=== PATIENT | male | born 1950 | race African-American/Black ===

== ENCOUNTER 2019-11-11 17:51 | Inpatient (IN) | payer MEDICARE, OTHER ==
[~2019-11-11] VITALS: Ht 180.3 cm; Wt 85.3 kg
[~2019-11-11 17:51] MED LIST: AMLO10TA4 PO; DILANTIN; LOSA100T3 PO; PHEN100C4 PO; TRAM50TA3 PO; [UNRECOGNIZED DRUG - REMARK]
[2019-11-11 19:38] LABS: BASOPHILS % 0.8 % (0.0-2.0); EOSINOPHILS % 2.8 % (0.0-5.0); HEMATOCRIT. 42.9 % (42.0-52.0); HEMOGLOBIN. 14.9 g/dL (14.0-18.0); LYMPHOCYTES % 34.2 % (20.0-50.0); MEAN PLATELET VOLUME 8.2 fl (7.4-10.4); MONOCYTES % 9.4 % (2.0-8.0); NEUTROPHILS % 52.8 % (40.0-76.0); PLATELET 184 x1000/uL (130-400); RED BLOOD CELL COUNT 4.99 mill/uL (4.7-6.1); RED CELL DISTRIBUTION WIDTH 14.8 % (11.6-14.6)
[2019-11-11 19:44] LABS: CHLORIDE 112 mEq/L (98-107)
[2019-11-11 19:49] LABS: ETHANOL BLOOD < 10 mg/dL
[2019-11-11] MEDS ORDERED: ACETAMINOPHEN 325MG TABLET PO PRN ×2 (23:30)
[2019-11-11] MEDS ORDERED: ACETAMINOPHEN 650MG/20.3ML UDC GT PRN ×2 (23:30)
[2019-11-11] MEDS ORDERED: DIPHENHYDRAMINE 50MG/ML VIAL IV PRN (23:30)
[2019-11-11] MEDS ORDERED: DOCUSATE SODIUM 100MG CAPSULE PO PRN (23:30)
[2019-11-11] MEDS ORDERED: MAGNESIUM/ALUMINUM HYDROXIDE/SIMETHICONE 30ML UDC PO PRN (23:30)
[2019-11-11] MEDS ORDERED: ONDANSETRON HCL 4MG/2ML INJ IV PRN (23:30)
[2019-11-11] MEDS ORDERED: GUAIFENESIN 200MG/10ML SUGAR FREE UDC PO PRN (23:30)
[2019-11-11] MEDS ORDERED: ACETAMINOPHEN 650MG SUPP PR PRN ×2 (23:30)
[2019-11-11] MEDS ORDERED: NA PHOS,M-B/NA PHOS,DI-BA ENEMA 118ML PR PRN (23:30)
[2019-11-11 23:50] LABS: CLARITY URINE CLEAR (CLEAR); COLOR URINE YELLOW (YELLOW); KETONES URINE NEGATIVE (NEGATIVE); LEUKOCYTE ESTERASE URINE NEGATIVE (NEGATIVE); NITRITE URINE NEGATIVE (NEGATIVE); OCCULT BLOOD URINE NEGATIVE (NEGATIVE); PROTEIN URINE NEGATIVE (NEGATIVE); SPECIFIC GRAVITY URINE 1.011 (1.005-1.030)
[2019-11-12] VITALS (13 sets, daily range): BP systolic 105–166; BP diastolic 62–126
[2019-11-12 00:28] LABS: *AMPHETAMINES SCREEN URINE NEGATIVE (NEGATIVE); *BARBITURATES SCREEN URINE NEGATIVE (NEGATIVE)
[2019-11-12 00:29] LABS: *BENZODIAZEPINES SCREEN URINE NEGATIVE (NEGATIVE); *COCAINE SCREEN URINE NEGATIVE (NEGATIVE); CANNABINOID URINE SCREEN NEGATIVE (NEGATIVE); METHADONE URINE SCREEN NEGATIVE (NEGATIVE); OPIATES URINE SCREEN NEGATIVE (NEGATIVE); PHENCYCLIDINE URINE SCREEN NEGATIVE (NEGATIVE)
[2019-11-12] MEDS ORDERED: METOPROLOL TARTRATE 5MG/5ML VIAL IV NR (04:45)
[2019-11-12 06:37] LABS: BASOPHILS % 0.6 % (0.0-2.0); EOSINOPHILS % 2.9 % (0.0-5.0); HEMATOCRIT. 44.6 % (42.0-52.0); HEMOGLOBIN. 15.7 g/dL (14.0-18.0); MEAN CORPUSCULAR HEMOGLOBIN 30.2 pg (28.0-32.0); MEAN PLATELET VOLUME 8.4 fl (7.4-10.4); MONOCYTES % 9.6 % (2.0-8.0); NEUTROPHILS % 47.9 % (40.0-76.0); PLATELET 181 x1000/uL (130-400); RED BLOOD CELL COUNT 5.19 mill/uL (4.7-6.1); RED CELL DISTRIBUTION WIDTH 14.7 % (11.6-14.6)
[2019-11-12] MEDS ORDERED: METOPROLOL TARTRATE 5MG/5ML VIAL IV PRN (06:45)
[2019-11-12 06:58] LABS: CHLORIDE 110 mEq/L (98-107)
[2019-11-12 07:05] LABS: LDL CHOLESTEROL 97 mg/dL (5-100)
[2019-11-12 07:06] LABS: HDL CHOLESTEROL 55 mg/dL (40-59)
[2019-11-12] MEDS: ASPIRIN 81MG EC TABLET PO SCH (08:59)
[2019-11-12] MEDS ORDERED: ENOXAPARIN 40MG/0.4ML SYR SUBCUT SCH (09:00)
[2019-11-12] MEDS: APIXABAN 5 MG TABLET PO SCH ×2 (13:25→17:04)
[2019-11-12] MEDS: ATORVASTATIN CALCIUM 40MG TABLET PO SCH (20:56)
[2019-11-12] MEDS: METOPROLOL TARTRATE 25MG TABLET PO SCH (20:56)
[2019-11-12] MEDS ORDERED: ATORVASTATIN CALCIUM 10MG TABLET PO SCH (21:00)
[2019-11-12] MEDS ORDERED: METOPROLOL TARTRATE 25MG TABLET PO SCH (21:00)
[2019-11-12] MEDS ORDERED: MAGNESIUM 2 G PREMIX 50 ML IV NR (21:00)
[2019-11-13] VITALS (11 sets, daily range): BP systolic 106–161; BP diastolic 66–102
[2019-11-13 08:14] LABS: VITAMIN B12 SERUM 627 pg/mL (211-911)
[2019-11-13] MEDS: APIXABAN 5 MG TABLET PO SCH ×2 (09:43→17:23)
[2019-11-13] MEDS: ASPIRIN 81MG EC TABLET PO SCH (09:43)
[2019-11-13] MEDS: METOPROLOL TARTRATE 25MG TABLET PO SCH ×2 (09:44→21:53)
[2019-11-13 12:41] LABS: EOSINOPHILS % 2.4 % (0.0-5.0); HEMATOCRIT. 42.8 % (42.0-52.0); HEMOGLOBIN. 14.5 g/dL (14.0-18.0); LYMPHOCYTES % 32.2 % (20.0-50.0); MEAN CORPUSCULAR HEMOGLOBIN 29.5 pg (28.0-32.0); MEAN CORPUSCULAR VOLUME 86.9 fL (80.0-94.0); MONOCYTES % 10.6 % (2.0-8.0); NEUTROPHILS % 53.8 % (40.0-76.0); PLATELET 185 x1000/uL (130-400); RED BLOOD CELL COUNT 4.93 mill/uL (4.7-6.1); RED CELL DISTRIBUTION WIDTH 14.8 % (11.6-14.6)
[2019-11-13 12:49] LABS: CHLORIDE 111 mEq/L (98-107)
[2019-11-13] MEDS: PHENYTOIN SODIUM EXTENDED 100MG CAPSULE PO SCH ×2 (15:21→21:51)
[2019-11-13] MEDS: ATORVASTATIN CALCIUM 40MG TABLET PO SCH (21:51)
[2019-11-14] VITALS (12 sets, daily range): BP systolic 112–142; BP diastolic 42–109
[2019-11-14] MEDS: PHENYTOIN SODIUM EXTENDED 100MG CAPSULE PO SCH ×2 (06:42→17:16)
[2019-11-14] MEDS: ASPIRIN 81MG EC TABLET PO SCH (08:50)
[2019-11-14] MEDS: APIXABAN 5 MG TABLET PO SCH ×2 (08:50→17:16)
[2019-11-14] MEDS: METOPROLOL TARTRATE 25MG TABLET PO SCH (08:53)
[2019-11-14] MEDS ORDERED: ASPI-1158 PO (09:46)
[2019-11-14] MEDS ORDERED: PHEN100C4 PO (09:46)
[2019-11-14] MEDS ORDERED: LIP40 PO (09:46)
[2019-11-14] MEDS ORDERED: APIX5TAB PO (09:46)
[2019-11-14] MEDS ORDERED: METO25TA6 PO (09:46)
[2019-11-14] MEDS ORDERED: PHENYTOIN SODIUM EXTENDED 100MG CAPSULE PO NR (16:00)
== END 2019-11-14 20:34 | disposition home health service (06) | DRG 45 ==
LOC: ER 17:51 → 3WST 20:01 → EDBEDREQ 20:02 → EDBEDREQTM 20:02 → ENRESERV 23:54 → 3WST 11-12 05:18
PROVIDERS: ADMIT Family Medicine; ATTEND Family Medicine
DX: I63.9 Cerebral infarction, unspecified (principal); G93.40 Encephalopathy, unspecified; I27.20 Pulmonary hypertension, unspecified; E87.8 Other disorders of electrolyte and fluid balance, not elsewhere classified; I48.91 Unspecified atrial fibrillation; I69.351 Hemiplegia and hemiparesis following cerebral infarction affecting right dominant side; E78.5 Hyperlipidemia, unspecified; G40.909 Epilepsy, unspecified, not intractable, without status epilepticus; F17.200 Nicotine dependence, unspecified, uncomplicated; R53.1 Weakness; I12.9 Hypertensive chronic kidney disease with stage 1 through stage 4 chronic kidney disease, or unspecified chronic kidney disease; J44.9 Chronic obstructive pulmonary disease, unspecified; N18.9 Chronic kidney disease, unspecified; Z85.038 Personal history of other malignant neoplasm of large intestine
CPT/HCPCS: 36415; 71045; 80053; 80061; 80185; 80305; 80320; 81003; 82140; 82607; 82962; 83735; 83880; 84443; 84484; 85025; 92610; 93005; 93306; 93880; 97112; 97162; 97166; 97530; 99285; J1650; J3475; J3490; G0480

== ENCOUNTER 2020-01-21 12:18 | Inpatient (IN) | payer MEDICARE, MEDICAID ==
[~2020-01-21] VITALS: Ht 182.9 cm; Wt 90.7 kg
[2020-01-21] MEDS: DEXT 5%/0.45% NACL 1000ML 1,000 ML IV SCH (07:30)
[~2020-01-21 12:18] MED LIST changes: +APIX5TAB PO; +ASPI-1158 PO; +LIP40 PO; +METO25TA6 PO
[2020-01-21] MEDS ORDERED: DILTIAZEM HCL 5MG/ML 5ML VIAL IV ONE (12:42)
[2020-01-21] MEDS ORDERED: KETAMINE HCL 50 MG/ML 10ML ONE (12:49)
[2020-01-21] MEDS ORDERED: ADENOSINE 3 MG/ML 2ML VIAL IV ONE (12:56)
[2020-01-21] MEDS ORDERED: SODIUM CHLORIDE 0.9% 1000ML BAG (SEPSIS BOLUS) IV ONE (13:15)
[2020-01-21] MEDS ORDERED: LEVOFLOXACIN 750MG PREMIX 150 ML IV ONE (13:15)
[2020-01-21] MEDS ORDERED: DEXAMETHASONE 4MG/ML 1ML VIAL IV SCH (13:15)
[2020-01-21] MEDS ORDERED: CEFTRIAXONE 1 G PREMIX 50 ML IV ONE (13:15)
[2020-01-21] MEDS ORDERED: FENTANYL CITRATE/PF 1,000 MCG in SODIUM CHLORIDE 0.9% 80 ML IV PRN ×2 (13:30→14:00)
[2020-01-21 14:21] LABS: BG BASE EXCESS -10.7 mmol/L (-2.0-2.0); BG CARBOXYHEMOGLOBIN 0.2 % (0.5-1.5); BG DEOXYHEMOGLOBIN 1.2 % (0.0-5.0); BG HCO3 ACT 13.4 mmol/L (22.0-26.0); BG METHEMOGLOBIN 0.2 % (0.0-1.5); BG OXYGEN SATURATION 98.8 % (92.0-98.5); BG OXYHEMOGLOBIN 98.4 % (94.0-97.0); BG PCO2 24.4 mmHg (35.0-45.0); BG PH 7.356 (7.350-7.450); BG PO2 309.5 mmHg (75.0-100.0); BG SAMPLE SITE RIGHT RADIAL; BG TIDAL VOLUME(mL) 450 mL; BG TOTAL HEMOGLOBIN 10.2 g/dL (12.0-18.0); BG VENT MODE VENT - A/C; BG VENT RATE 14 set
[2020-01-21 16:35] LABS: CLARITY URINE TURBID (CLEAR); KETONES URINE 1+ (NEGATIVE); LEUKOCYTE ESTERASE URINE 3+ (NEGATIVE); NITRITE URINE NEGATIVE (NEGATIVE); OCCULT BLOOD URINE 3+ (NEGATIVE); PROTEIN URINE 2+ (NEGATIVE); SPECIFIC GRAVITY URINE 1.015 (1.005-1.030)
[2020-01-21 16:49] LABS: COLOR URINE ORANGE (YELLOW)
[2020-01-21 16:49] LABS: CHLORIDE 118 mEq/L (98-107)
[2020-01-21 16:55] LABS: BASOPHILS % 0.1 % (0.0-2.0); EOSINOPHILS % 0.4 % (0.0-5.0); HEMATOCRIT. 25.8 % (42.0-52.0); LYMPHOCYTES % 7.6 % (20.0-50.0); MEAN CORPUSCULAR HEMOGLOBIN 30.1 pg (28.0-32.0); MEAN CORPUSCULAR VOLUME 86.5 fL (80.0-94.0); MEAN PLATELET VOLUME 9.3 fl (7.4-10.4); NEUTROPHILS % 84.9 % (40.0-76.0); PLATELET 216 x1000/uL (130-400); RED BLOOD CELL COUNT 2.99 mill/uL (4.7-6.1)
[2020-01-21] MEDS ORDERED: ENOXAPARIN 60MG/0.6ML SYR SUBCUT ONE (17:00)
[2020-01-21 17:01] LABS: INR 1.2
[2020-01-21] MEDS ORDERED: MAGNESIUM/ALUMINUM HYDROXIDE/SIMETHICONE 30ML UDC PO PRN (17:15)
[2020-01-21] MEDS ORDERED: GUAIFENESIN 200MG/10ML SUGAR FREE UDC PO PRN (17:15)
[2020-01-21] MEDS ORDERED: CLONIDINE 0.1MG TABLET PO PRN (17:15)
[2020-01-21] MEDS ORDERED: AMIODARONE HCL 300 MG in DEXT 5% WATER 100 ML IV NR (17:30)
[2020-01-21] MEDS ORDERED: SODIUM CHLORIDE 0.9% 1000ML BAG (SEPSIS BOLUS) IV NR (17:36)
[2020-01-21 17:47] LABS: TOTAL IRON BINDING CAPACITY 76 ug/dL (250-450)
[2020-01-21] MEDS ORDERED: NOREPINEPHRINE 4MG/250ML PMX 250 ML IV NR (17:47)
[2020-01-21 17:48] LABS: LDL CHOLESTEROL 17 mg/dL (5-100)
[2020-01-21 17:50] LABS: HDL CHOLESTEROL 8 mg/dL (40-59)
[2020-01-21 17:51] LABS: T4 FREE 0.98 ng/dL (0.76-1.46)
[2020-01-21 18:07] LABS: FOLIC ACID (FOLATE) SERUM 14.2 ng/mL (>5.38)
[2020-01-21] MEDS ORDERED: VANCOMYCIN 1 G PREMIX 200 ML IV NR (19:00)
[2020-01-21] MEDS: IPRATROPIUM/ALBUTEROL 0.5-3(2.5)MG/3ML NEB HHN SCH (21:33)
[2020-01-22] MEDS: DEXT 5%/0.45% NACL 1000ML 1,000 ML IV SCH ×3 (00:30→17:38)
[2020-01-22] MEDS: IPRATROPIUM/ALBUTEROL 0.5-3(2.5)MG/3ML NEB HHN SCH ×3 (00:50→10:07)
[2020-01-22 06:04] LABS: CHLORIDE 118 mEq/L (98-107)
[2020-01-22 06:06] LABS: HEMATOCRIT. 29.7 % (42.0-52.0); HEMOGLOBIN. 10.1 g/dL (14.0-18.0); MEAN CORPUSCULAR HEMOGLOBIN 29.3 pg (28.0-32.0); MEAN CORPUSCULAR VOLUME 86.1 fL (80.0-94.0); MEAN PLATELET VOLUME 9.3 fl (7.4-10.4); PLATELET 203 x1000/uL (130-400); RED BLOOD CELL COUNT 3.45 mill/uL (4.7-6.1); RED CELL DISTRIBUTION WIDTH 15.8 % (11.6-14.6)
[2020-01-22 06:11] LABS: PHOSPHORUS 6.8 mg/dL (2.5-4.9)
[2020-01-22] MEDS: PIPERACILLIN/TAZ 3.375G PREMIX 50 ML IV SCH ×3 (07:40→09:27)
[2020-01-22] MEDS: ASCORBIC ACID 500 MG TABLET PO SCH ×2 (07:41→09:00)
[2020-01-22] MEDS: ASPIRIN 325MG EC TABLET PO SCH (09:00)
[2020-01-22] MEDS ORDERED: AMIODARONE HCL 900 MG in DEXT 5% WATER 500 ML IV SCH (09:00)
[2020-01-22] MEDS: ZINC SULFATE 220 MG ( 50 ) CAPSULE PO SCH (09:00)
[2020-01-22] MEDS: PANTOPRAZOLE SODIUM 40 MG/VIAL IV SCH (09:00)
[2020-01-22] MEDS ORDERED: VANCOMYCIN 1 G PREMIX 200 ML IV NR (09:30)
[2020-01-22] MEDS ORDERED: MIDODRINE HCL 5MG TABLET NG SCH (16:45)
[2020-01-22] MEDS ORDERED: DILTIAZEM HCL 125 MG in DEXT 5% WATER 100 ML IV NR (16:45)
[2020-01-22] MEDS ORDERED: HEPARIN 25,000 UNITS PREMIX 500 ML IV SCH (16:45)
[2020-01-22] MEDS ORDERED: ENOXAPARIN 30MG/0.3ML SYR SUBCUT SCH (17:00)
[2020-01-22] MEDS ORDERED: DIGOXIN 500MCG/2ML AMP IV NR (17:15)
[2020-01-22] MEDS ORDERED: PHENYLEPHRINE 10 MG in DEXT 5% WATER 249 ML IV PRN (17:15)
[2020-01-22 18:58] LABS: INR 1.1; PARTIAL THROMBOPLASTIN TIME 33.3 sec (23.4-31.0); PROTHROMBIN TIME 11.8 sec (9.6-11.0)
[2020-01-22 19:11] LABS: PLATELET ESTIMATE NORMAL
[2020-01-22] MEDS ORDERED: HEPARIN BOLUS PRN aPTT <30 IV (19:15)
[2020-01-22] MEDS ORDERED: HEPARIN BOLUS PRN aPTT 30-44 IV (19:15)
[2020-01-22 19:29] LABS: BG BASE EXCESS -11.2 mmol/L (-2.0-2.0); BG CARBOXYHEMOGLOBIN 0.2 % (0.5-1.5); BG DEOXYHEMOGLOBIN 2.6 % (0.0-5.0); BG FRACTION INSPIRED OXYGEN 50; BG HCO3 ACT 14.4 mmol/L (22.0-26.0); BG METHEMOGLOBIN 0.2 % (0.0-1.5); BG OXYGEN SATURATION 97.4 % (92.0-98.5); BG PCO2 31.2 mmHg (35.0-45.0); BG PH 7.282 (7.350-7.450); BG PO2 113.4 mmHg (75.0-100.0); BG SAMPLE SITE RIGHT RADIAL; BG TIDAL VOLUME(mL) 500 mL; BG TOTAL HEMOGLOBIN 10.2 g/dL (12.0-18.0); BG VENT MODE VENT - A/C; BG VENT RATE 14 set
[2020-01-22] MEDS ORDERED: HEPARIN 60 UNITS/KG BOLUS IV SCH (19:30)
[2020-01-22] MEDS: DILTIAZEM HCL 125 MG in DEXT 5% WATER 100 ML IV PRN (20:10)
[2020-01-22] MEDS: IPRATROPIUM BROMIDE (0.02%) 0.5MG/2.5ML NEB HHN SCH (20:30)
[2020-01-22] MEDS: HEPARIN 25,000 UNITS PREMIX 500 ML IV SCH (21:33)
[2020-01-22] MEDS ORDERED: MIDODRINE HCL 5MG TABLET NG NR (22:15)
[2020-01-22] MEDS ORDERED: MIDODRINE HCL 5MG TABLET PO NR (22:15)
[2020-01-23] VITALS (23 sets, daily range): BP systolic 80–121; BP diastolic 56–84
[2020-01-23] MEDS: PIPERACILLIN/TAZOBACTAM 2.25 G in DEXTROSE 5% WATER 50 ML IV SCH ×3 (00:30→20:47)
[2020-01-23] MEDS ORDERED: DIGOXIN 500MCG/2ML AMP IV NR (01:00)
[2020-01-23] MEDS: ASCORBIC ACID 500 MG TABLET PO SCH ×3 (02:30→20:47)
[2020-01-23] MEDS: IPRATROPIUM BROMIDE (0.02%) 0.5MG/2.5ML NEB HHN SCH (04:30)
[2020-01-23] MEDS ORDERED: ALBUMIN HUMAN 25GM/100ML (25%) IV ONE (06:45)
[2020-01-23] MEDS: ASPIRIN 325MG EC TABLET PO SCH (09:00)
[2020-01-23] MEDS: ZINC SULFATE 220 MG ( 50 ) CAPSULE PO SCH (09:00)
[2020-01-23] MEDS ORDERED: MIDODRINE HCL 5MG TABLET NG SCH (09:00)
[2020-01-23] MEDS: PANTOPRAZOLE SODIUM 40 MG/VIAL IV SCH (09:00)
[2020-01-23] MEDS ORDERED: AMIODARONE HCL 200 MG TABLET PO SCH (09:00)
[2020-01-23 09:22] LABS: BG BASE EXCESS -13.1 mmol/L (-2.0-2.0); BG CARBOXYHEMOGLOBIN 0.2 % (0.5-1.5); BG DEOXYHEMOGLOBIN 1.3 % (0.0-5.0); BG HCO3 ACT 14.4 mmol/L (22.0-26.0); BG METHEMOGLOBIN 0.1 % (0.0-1.5); BG OXYGEN SATURATION 98.7 % (92.0-98.5); BG OXYHEMOGLOBIN 98.4 % (94.0-97.0); BG PCO2 39.3 mmHg (35.0-45.0); BG PH 7.182 (7.350-7.450); BG SAMPLE SITE LEFT FEMORAL; BG TIDAL VOLUME(mL) 500 mL; BG TOTAL HEMOGLOBIN 10.7 g/dL (12.0-18.0); BG VENT MODE VENT - A/C; BG VENT RATE 14 set
[2020-01-23] MEDS ORDERED: MIDODRINE HCL 5MG TABLET PO STA (10:27)
[2020-01-23] MEDS ORDERED: VANCOMYCIN 1250MG in DEXTROSE 5% WATER 250ML IV NR (11:00)
[2020-01-23] MEDS ORDERED: LIDOCAINE HCL 1% 20ML VIAL (Pyxis) INJ ONE (11:36)
[2020-01-23] MEDS ORDERED: SODIUM BICARBONATE 4% (2.4MEQ) 5ML VIAL IV ONE (11:36)
[2020-01-23] MEDS ORDERED: SODIUM BICARBONATE 8.4% 1 MEQ/ML 50ML SYR IV NR (12:30)
[2020-01-23] MEDS ORDERED: SODIUM BICARBONATE 8.4% 1 MEQ/ML 50ML SYR IV ONE (12:30)
[2020-01-23 12:41] LABS: HEMATOCRIT. 28.1 % (42.0-52.0); HEMOGLOBIN. 9.3 g/dL (14.0-18.0); MEAN CORPUSCULAR HEMOGLOBIN 28.9 pg (28.0-32.0); MEAN CORPUSCULAR VOLUME 87.4 fL (80.0-94.0); MEAN PLATELET VOLUME 9.2 fl (7.4-10.4); PLATELET 241 x1000/uL (130-400); RED BLOOD CELL COUNT 3.21 mill/uL (4.7-6.1); RED CELL DISTRIBUTION WIDTH 16.5 % (11.6-14.6)
[2020-01-23 12:43] LABS: CHLORIDE 109 mEq/L (98-107)
[2020-01-23 12:51] LABS: PHOSPHORUS 7.7 mg/dL (2.5-4.9)
[2020-01-23 13:02] LABS: NUCLEATED RED BLOOD CELLS 1 /100 WBC; PLATELET ESTIMATE NORMAL
[2020-01-23] MEDS ORDERED: SODIUM POLYSTYRENE SULFONATE 15 G/60 ML BOT PO NR (13:30)
[2020-01-23] MEDS: SODIUM BICARBONATE 100 MEQ in DEXTROSE 5% WATER 1,000 ML IV SCH (13:30)
[2020-01-23] MEDS ORDERED: FUROSEMIDE 100MG/10ML VIAL IVP NR (13:30)
[2020-01-23] MEDS: SODIUM BICARBONATE 8.4% 1 MEQ/ML 50ML SYR IV NR ×2 (13:50→13:52)
[2020-01-23] MEDS: MIDODRINE HCL 5MG TABLET NG SCH ×2 (14:36→21:04)
[2020-01-23] MEDS: FENTANYL CITRATE/PF 1,000 MCG in SODIUM CHLORIDE 0.9% 80 ML IV PRN (18:35)
[2020-01-23] MEDS: PHENYLEPHRINE 40 MG in DEXTROSE 5% WATER 250 ML IV PRN ×2 (18:59→22:59)
[2020-01-23] MEDS: MIDAZOLAM HCL 100 MG in DEXT 5% WATER 80 ML IV PRN (19:00)
[2020-01-24] VITALS (96 sets, daily range): BP systolic 72–120; BP diastolic 42–95
[2020-01-24] MEDS: IPRATROPIUM BROMIDE (0.02%) 0.5MG/2.5ML NEB HHN SCH ×5 (00:49→21:52)
[2020-01-24] MEDS: SODIUM BICARBONATE 100 MEQ in DEXTROSE 5% WATER 1,000 ML IV SCH ×2 (00:59→11:41)
[2020-01-24] MEDS: HEPARIN 25,000 UNITS PREMIX 500 ML IV SCH (01:07)
[2020-01-24] MEDS: PHENYLEPHRINE 80 MG in DEXT 5% WATER 492 ML IV PRN ×2 (04:10→22:06)
[2020-01-24] MEDS: MIDODRINE HCL 5MG TABLET NG SCH ×3 (05:31→22:05)
[2020-01-24 07:44] LABS: HEMATOCRIT. 26.8 % (42.0-52.0); HEMOGLOBIN. 9.1 g/dL (14.0-18.0); MEAN CORPUSCULAR HEMOGLOBIN 28.8 pg (28.0-32.0); MEAN CORPUSCULAR VOLUME 84.9 fL (80.0-94.0); MEAN PLATELET VOLUME 9.2 fl (7.4-10.4); PLATELET 162 x1000/uL (130-400); RED BLOOD CELL COUNT 3.16 mill/uL (4.7-6.1)
[2020-01-24 07:47] LABS: CHLORIDE 98 mEq/L (98-107)
[2020-01-24 07:53] LABS: PHOSPHORUS 6.8 mg/dL (2.5-4.9)
[2020-01-24 10:06] LABS: BG BASE EXCESS -5.7 mmol/L (-2.0-2.0); BG CARBOXYHEMOGLOBIN 0.3 % (0.5-1.5); BG DEOXYHEMOGLOBIN 2.8 % (0.0-5.0); BG FRACTION INSPIRED OXYGEN 40; BG HCO3 ACT 19.7 mmol/L (22.0-26.0); BG METHEMOGLOBIN 0.4 % (0.0-1.5); BG OXYGEN SATURATION 97.2 % (92.0-98.5); BG OXYHEMOGLOBIN 96.5 % (94.0-97.0); BG PCO2 38.1 mmHg (35.0-45.0); BG PH 7.331 (7.350-7.450); BG PO2 99.1 mmHg (75.0-100.0); BG SAMPLE SITE RIGHT RADIAL; BG TIDAL VOLUME(mL) 450 mL; BG TOTAL HEMOGLOBIN 6.1 g/dL (12.0-18.0); BG VENT MODE VENT - A/C; BG VENT RATE 18 set
[2020-01-24] MEDS: PANTOPRAZOLE SODIUM 40 MG/VIAL IV SCH (10:12)
[2020-01-24] MEDS: ASCORBIC ACID 500 MG TABLET PO SCH ×2 (10:12→22:04)
[2020-01-24] MEDS: ASPIRIN 325MG EC TABLET PO SCH (10:13)
[2020-01-24] MEDS: ZINC SULFATE 220 MG ( 50 ) CAPSULE PO SCH (10:13)
[2020-01-24] MEDS: PIPERACILLIN/TAZOBACTAM 2.25 G in DEXTROSE 5% WATER 50 ML IV SCH (11:06)
[2020-01-24 11:16] LABS: PLATELET ESTIMATE NORMAL
[2020-01-24] MEDS: MIDAZOLAM HCL 100 MG in DEXT 5% WATER 80 ML IV PRN (13:53)
[2020-01-24] MEDS ORDERED: ALBUMIN HUMAN 25GM/100ML (25%) IV NR (14:00)
[2020-01-24] MEDS: SODIUM BICARBONATE 150 MEQ in DEXTROSE 5% WATER 1,000 ML IV SCH (14:27)
[2020-01-24] MEDS: ENOXAPARIN 80MG/0.8ML SYR SUBCUT SCH (14:29)
[2020-01-24] MEDS: FENTANYL CITRATE/PF 1,000 MCG in SODIUM CHLORIDE 0.9% 80 ML IV PRN (15:15)
[2020-01-24] MEDS: MEROPENEM 1,000 MG in SODIUM CHLORIDE 0.9% 100 ML IV SCH (22:01)
[2020-01-24] MEDS: METRONIDAZOLE 250MG TABLET PO SCH (22:04)
[2020-01-24] MEDS: SODIUM HYPOCHLORITE (0.25%) 480ML SOLUTION (HALF STRENGTH) TOP SCH (22:05)
[2020-01-24] MEDS: DILTIAZEM HCL 125 MG in DEXT 5% WATER 100 ML IV PRN (23:43)
[2020-01-25] VITALS (99 sets, daily range): BP systolic 67–154; BP diastolic 43–99
[2020-01-25] MEDS: IPRATROPIUM BROMIDE (0.02%) 0.5MG/2.5ML NEB HHN SCH ×5 (01:02→21:03)
[2020-01-25] MEDS: SODIUM BICARBONATE 150 MEQ in DEXTROSE 5% WATER 1,000 ML IV SCH ×3 (01:44→13:34)
[2020-01-25] MEDS: NOREPINEPHRINE 8 MG in DEXT 5% WATER 242 ML IV PRN (02:49)
[2020-01-25] MEDS: FENTANYL CITRATE/PF 1,000 MCG in SODIUM CHLORIDE 0.9% 80 ML IV PRN ×2 (05:45→17:36)
[2020-01-25 05:57] LABS: BASOPHILS % 0.1 % (0.0-2.0); EOSINOPHILS % 0.2 % (0.0-5.0); HEMATOCRIT. 24.1 % (42.0-52.0); HEMOGLOBIN. 8.6 g/dL (14.0-18.0); MEAN CORPUSCULAR HEMOGLOBIN 29.5 pg (28.0-32.0); MEAN CORPUSCULAR VOLUME 83.1 fL (80.0-94.0); MEAN PLATELET VOLUME 8.9 fl (7.4-10.4); MONOCYTES % 2.9 % (2.0-8.0); NEUTROPHILS % 88.8 % (40.0-76.0); PLATELET 130 x1000/uL (130-400); RED CELL DISTRIBUTION WIDTH 15.8 % (11.6-14.6)
[2020-01-25] MEDS: METRONIDAZOLE 250MG TABLET PO SCH ×3 (05:57→21:34)
[2020-01-25] MEDS: MIDODRINE HCL 5MG TABLET NG SCH ×3 (05:57→21:37)
[2020-01-25 06:22] LABS: PHOSPHORUS 4.9 mg/dL (2.5-4.9)
[2020-01-25] MEDS: PHENYLEPHRINE 80 MG in DEXT 5% WATER 492 ML IV PRN ×3 (07:05→22:45)
[2020-01-25] MEDS: PANTOPRAZOLE SODIUM 40 MG/VIAL IV SCH (08:52)
[2020-01-25] MEDS: ACETAMINOPHEN 325MG TABLET PO PRN (08:53)
[2020-01-25] MEDS: ASCORBIC ACID 500 MG TABLET PO SCH ×2 (08:54→21:34)
[2020-01-25] MEDS: ASPIRIN 325MG EC TABLET PO SCH (08:54)
[2020-01-25] MEDS: ZINC SULFATE 220 MG ( 50 ) CAPSULE PO SCH (08:54)
[2020-01-25] MEDS: SODIUM HYPOCHLORITE (0.25%) 480ML SOLUTION (HALF STRENGTH) TOP SCH ×3 (08:54→17:35)
[2020-01-25 10:37] LABS: BG BASE EXCESS -6.6 mmol/L (-2.0-2.0); BG CARBOXYHEMOGLOBIN 0.3 % (0.5-1.5); BG FRACTION INSPIRED OXYGEN 40; BG HCO3 ACT 16.9 mmol/L (22.0-26.0); BG METHEMOGLOBIN 0.1 % (0.0-1.5); BG OXYHEMOGLOBIN 97.6 % (94.0-97.0); BG PCO2 26.8 mmHg (35.0-45.0); BG PH 7.417 (7.350-7.450); BG PO2 121.4 mmHg (75.0-100.0); BG SAMPLE SITE RIGHT RADIAL; BG TIDAL VOLUME(mL) 450 mL; BG TOTAL HEMOGLOBIN 9.1 g/dL (12.0-18.0); BG VENT MODE VENT - A/C; BG VENT RATE 18 set
[2020-01-25] MEDS: CALCITRIOL 1MCG/ML AMP IV SCH (12:10)
[2020-01-25] MEDS ORDERED: VANCOMYCIN 1 G PREMIX 200 ML IV SCH (14:00)
[2020-01-25] MEDS: ENOXAPARIN 80MG/0.8ML SYR SUBCUT SCH (14:10)
[2020-01-25] MEDS: MEROPENEM 1,000 MG in SODIUM CHLORIDE 0.9% 100 ML IV SCH (17:36)
[2020-01-25] MEDS: DILTIAZEM HCL 125 MG in DEXT 5% WATER 100 ML IV PRN (19:19)
[2020-01-26] VITALS (95 sets, daily range): BP systolic 69–133; BP diastolic 40–92
[2020-01-26] MEDS: IPRATROPIUM BROMIDE (0.02%) 0.5MG/2.5ML NEB HHN SCH ×6 (00:41→21:37)
[2020-01-26] MEDS: SODIUM BICARBONATE 150 MEQ in DEXTROSE 5% WATER 1,000 ML IV SCH ×2 (01:15→13:04)
[2020-01-26] MEDS: MIDAZOLAM HCL 100 MG in DEXT 5% WATER 80 ML IV PRN (03:30)
[2020-01-26] MEDS: FENTANYL CITRATE/PF 1,000 MCG in SODIUM CHLORIDE 0.9% 80 ML IV PRN ×3 (03:30→21:57)
[2020-01-26] MEDS: METRONIDAZOLE 250MG TABLET PO SCH ×3 (05:03→21:24)
[2020-01-26] MEDS: MIDODRINE HCL 5MG TABLET NG SCH ×3 (05:03→21:25)
[2020-01-26 06:32] LABS: HEMATOCRIT. 27.4 % (42.0-52.0); HEMOGLOBIN. 9.4 g/dL (14.0-18.0); MEAN CORPUSCULAR HEMOGLOBIN 28.8 pg (28.0-32.0); MEAN CORPUSCULAR VOLUME 83.3 fL (80.0-94.0); MEAN PLATELET VOLUME 9.2 fl (7.4-10.4); PLATELET 126 x1000/uL (130-400); RED BLOOD CELL COUNT 3.28 mill/uL (4.7-6.1); RED CELL DISTRIBUTION WIDTH 15.1 % (11.6-14.6)
[2020-01-26 07:16] LABS: PHOSPHORUS 3.6 mg/dL (2.5-4.9)
[2020-01-26] MEDS: PHENYLEPHRINE 80 MG in DEXT 5% WATER 492 ML IV PRN ×3 (08:33→22:07)
[2020-01-26] MEDS: FOLIC ACID 1MG TABLET NG SCH (08:35)
[2020-01-26] MEDS: ASPIRIN 325MG EC TABLET PO SCH (08:35)
[2020-01-26] MEDS: ZINC SULFATE 220 MG ( 50 ) CAPSULE PO SCH (08:35)
[2020-01-26] MEDS: ASCORBIC ACID 500 MG TABLET PO SCH ×2 (08:35→21:24)
[2020-01-26] MEDS: THIAMINE HCL 100MG TABLET NG SCH ×2 (08:35→17:16)
[2020-01-26] MEDS: CALCITRIOL 1MCG/ML AMP IV SCH (08:35)
[2020-01-26] MEDS: PANTOPRAZOLE SODIUM 40 MG/VIAL IV SCH (08:35)
[2020-01-26] MEDS: SODIUM HYPOCHLORITE (0.25%) 480ML SOLUTION (HALF STRENGTH) TOP SCH ×3 (08:35→17:16)
[2020-01-26 10:17] LABS: BG BASE EXCESS 4.7 mmol/L (-2.0-2.0); BG CARBOXYHEMOGLOBIN 0.2 % (0.5-1.5); BG DEOXYHEMOGLOBIN 3.4 % (0.0-5.0); BG FRACTION INSPIRED OXYGEN 40; BG HCO3 ACT 27.5 mmol/L (22.0-26.0); BG METHEMOGLOBIN 0.2 % (0.0-1.5); BG OXYGEN SATURATION 96.6 % (92.0-98.5); BG OXYHEMOGLOBIN 96.2 % (94.0-97.0); BG PCO2 33.5 mmHg (35.0-45.0); BG PH 7.532 (7.350-7.450); BG SAMPLE SITE RIGHT RADIAL; BG TIDAL VOLUME(mL) 450 mL; BG TOTAL HEMOGLOBIN 8.9 g/dL (12.0-18.0); BG VENT MODE VENT - A/C; BG VENT RATE 18 set
[2020-01-26] MEDS ORDERED: KCL 20MEQ/100ML PREMIX 100 ML IV NR (12:00)
[2020-01-26] MEDS: NOREPINEPHRINE 8 MG in DEXT 5% WATER 242 ML IV PRN ×2 (13:05→22:05)
[2020-01-26] MEDS: ENOXAPARIN 80MG/0.8ML SYR SUBCUT SCH (15:16)
[2020-01-26] MEDS: MEROPENEM 1,000 MG in SODIUM CHLORIDE 0.9% 100 ML IV SCH (17:16)
[2020-01-26] MEDS: DILTIAZEM HCL 125 MG in DEXT 5% WATER 100 ML IV PRN (19:45)
[2020-01-26] MEDS ORDERED: KCL 20MEQ/100ML PREMIX 100 ML IV SCH (20:00)
[2020-01-26] MEDS ORDERED: MAGNESIUM 2 G PREMIX 50 ML IV SCH (20:00)
[2020-01-26] MEDS: DEXT 5%/0.9% NACL KCL 20MEQ/L 1,000 ML IV SCH (20:20)
[2020-01-26 20:39] LABS: ATYPICAL LYMPHOCYTES 1; PLATELET ESTIMATE NORMAL
[2020-01-26] MEDS ORDERED: CALCIUM GLUCONATE 1,000 MG in DEXTROSE 5% WATER 50 ML IV SCH (21:00)
[2020-01-26] MEDS: HYDROCORTISONE SOD SUCCINATE 100 MG/2 ML VIAL IV SCH (21:24)
[2020-01-27] VITALS (82 sets, daily range): BP systolic 99–156; BP diastolic 59–100
[2020-01-27] MEDS: IPRATROPIUM BROMIDE (0.02%) 0.5MG/2.5ML NEB HHN SCH ×6 (00:59→20:25)
[2020-01-27] MEDS: METRONIDAZOLE 250MG TABLET PO SCH ×2 (05:08→14:28)
[2020-01-27] MEDS: HYDROCORTISONE SOD SUCCINATE 100 MG/2 ML VIAL IV SCH ×3 (05:08→21:38)
[2020-01-27] MEDS: MIDODRINE HCL 5MG TABLET NG SCH ×3 (05:09→21:37)
[2020-01-27 08:10] LABS: HEMATOCRIT. 26.6 % (42.0-52.0); HEMOGLOBIN. 9.3 g/dL (14.0-18.0); MEAN CORPUSCULAR VOLUME 83.5 fL (80.0-94.0); MEAN PLATELET VOLUME 9.1 fl (7.4-10.4); PLATELET 136 x1000/uL (130-400); RED BLOOD CELL COUNT 3.19 mill/uL (4.7-6.1); RED CELL DISTRIBUTION WIDTH 15.1 % (11.6-14.6)
[2020-01-27 08:26] LABS: PHOSPHORUS 3.6 mg/dL (2.5-4.9)
[2020-01-27] MEDS: CALCITRIOL 1MCG/ML AMP IV SCH (09:41)
[2020-01-27] MEDS: DEXT 5%/0.9% NACL KCL 20MEQ/L 1,000 ML IV SCH ×2 (09:41→16:38)
[2020-01-27] MEDS: PANTOPRAZOLE SODIUM 40 MG/VIAL IV SCH (09:41)
[2020-01-27] MEDS: ASCORBIC ACID 500 MG TABLET PO SCH ×2 (09:42→21:36)
[2020-01-27] MEDS: FOLIC ACID 1MG TABLET NG SCH (09:42)
[2020-01-27] MEDS: ASPIRIN 325MG EC TABLET PO SCH (09:42)
[2020-01-27] MEDS: ZINC SULFATE 220 MG ( 50 ) CAPSULE PO SCH (09:42)
[2020-01-27] MEDS: THIAMINE HCL 100MG TABLET NG SCH ×2 (09:42→18:14)
[2020-01-27] MEDS: SODIUM HYPOCHLORITE (0.25%) 480ML SOLUTION (HALF STRENGTH) TOP SCH ×3 (09:43→16:39)
[2020-01-27 10:08] LABS: BG BASE EXCESS 5.7 mmol/L (-2.0-2.0); BG CARBOXYHEMOGLOBIN 0.7 % (0.5-1.5); BG DEOXYHEMOGLOBIN 2.7 % (0.0-5.0); BG FRACTION INSPIRED OXYGEN 40; BG HCO3 ACT 29.1 mmol/L (22.0-26.0); BG METHEMOGLOBIN 0.3 % (0.0-1.5); BG OXYGEN SATURATION 97.3 % (92.0-98.5); BG OXYHEMOGLOBIN 96.3 % (94.0-97.0); BG PCO2 37.4 mmHg (35.0-45.0); BG PH 7.509 (7.350-7.450); BG PO2 97.9 mmHg (75.0-100.0); BG SAMPLE SITE RIGHT RADIAL; BG TIDAL VOLUME(mL) 450 mL; BG TOTAL HEMOGLOBIN 8.6 g/dL (12.0-18.0); BG VENT MODE VENT - A/C; BG VENT RATE 14 set
[2020-01-27] MEDS: FENTANYL CITRATE/PF 1,000 MCG in SODIUM CHLORIDE 0.9% 80 ML IV PRN ×2 (10:26→20:46)
[2020-01-27 13:07] LABS: PLATELET ESTIMATE NORMAL
[2020-01-27] MEDS: ENOXAPARIN 80MG/0.8ML SYR SUBCUT SCH (14:29)
[2020-01-27] MEDS: MIDAZOLAM HCL 100 MG in DEXT 5% WATER 80 ML IV PRN ×2 (16:29→19:00)
[2020-01-27] MEDS ORDERED: CALCIUM GLUCONATE 1,000 MG in DEXT 5% WATER 90 ML IV SCH (17:30)
[2020-01-27] MEDS: PHENYLEPHRINE 80 MG in DEXT 5% WATER 492 ML IV PRN (19:00)
[2020-01-27] MEDS: AMPICILLIN SOD/SULBACTAM NA 3 G in SODIUM CHLORIDE 0.9% 100 ML IV SCH (21:36)
[2020-01-28] VITALS (78 sets, daily range): BP systolic 91–136; BP diastolic 56–91
[2020-01-28] MEDS: IPRATROPIUM BROMIDE (0.02%) 0.5MG/2.5ML NEB HHN SCH ×7 (00:30→23:57)
[2020-01-28] MEDS: DEXT 5%/0.9% NACL KCL 20MEQ/L 1,000 ML IV SCH ×3 (04:50→22:00)
[2020-01-28 05:40] LABS: HEMATOCRIT. 23.1 % (42.0-52.0); HEMOGLOBIN. 7.9 g/dL (14.0-18.0); MEAN CORPUSCULAR HEMOGLOBIN 28.9 pg (28.0-32.0); MEAN PLATELET VOLUME 9.2 fl (7.4-10.4); PLATELET 151 x1000/uL (130-400); RED BLOOD CELL COUNT 2.75 mill/uL (4.7-6.1)
[2020-01-28 05:49] LABS: CHLORIDE 97 mEq/L (98-107)
[2020-01-28 05:55] LABS: PHOSPHORUS 3.1 mg/dL (2.5-4.9)
[2020-01-28] MEDS: MIDODRINE HCL 5MG TABLET NG SCH ×3 (06:10→22:00)
[2020-01-28] MEDS: HYDROCORTISONE SOD SUCCINATE 100 MG/2 ML VIAL IV SCH ×3 (06:10→21:46)
[2020-01-28] MEDS: ZINC SULFATE 220 MG ( 50 ) CAPSULE PO SCH (09:15)
[2020-01-28] MEDS: DOCUSATE SODIUM 100MG CAPSULE PO PRN (09:15)
[2020-01-28] MEDS: FENTANYL CITRATE/PF 1,000 MCG in SODIUM CHLORIDE 0.9% 80 ML IV PRN (09:15)
[2020-01-28] MEDS: FOLIC ACID 1MG TABLET NG SCH (09:15)
[2020-01-28] MEDS: THIAMINE HCL 100MG TABLET NG SCH ×2 (09:15→16:45)
[2020-01-28] MEDS: ASPIRIN 325MG EC TABLET PO SCH (09:15)
[2020-01-28] MEDS: ASCORBIC ACID 500 MG TABLET PO SCH ×2 (09:15→21:46)
[2020-01-28] MEDS: PANTOPRAZOLE SODIUM 40 MG/VIAL IV SCH (09:15)
[2020-01-28 10:56] LABS: PLATELET ESTIMATE NORMAL
[2020-01-28 11:00] LABS: BG BASE EXCESS 3.9 mmol/L (-2.0-2.0); BG CARBOXYHEMOGLOBIN 0.3 % (0.5-1.5); BG DEOXYHEMOGLOBIN 2.5 % (0.0-5.0); BG FRACTION INSPIRED OXYGEN 40; BG HCO3 ACT 26.5 mmol/L (22.0-26.0); BG METHEMOGLOBIN 0.2 % (0.0-1.5); BG OXYGEN SATURATION 97.5 % (92.0-98.5); BG PCO2 31.4 mmHg (35.0-45.0); BG PH 7.544 (7.350-7.450); BG PO2 100.7 mmHg (75.0-100.0); BG SAMPLE SITE RIGHT RADIAL; BG TIDAL VOLUME(mL) 450 mL; BG TOTAL HEMOGLOBIN 7.7 g/dL (12.0-18.0); BG VENT MODE VENT - A/C; BG VENT RATE 14 set
[2020-01-28] MEDS: AMPICILLIN SOD/SULBACTAM NA 3 G in SODIUM CHLORIDE 0.9% 100 ML IV SCH ×2 (11:32→21:45)
[2020-01-28] MEDS: SODIUM HYPOCHLORITE (0.25%) 480ML SOLUTION (HALF STRENGTH) TOP SCH ×3 (11:32→16:45)
[2020-01-28] MEDS: CALCITRIOL 1MCG/ML AMP IV SCH (11:32)
[2020-01-28] MEDS: ENOXAPARIN 80MG/0.8ML SYR SUBCUT SCH (13:20)
[2020-01-28 17:26] LABS: BG BASE EXCESS 2.3 mmol/L (-2.0-2.0); BG CARBOXYHEMOGLOBIN 0.3 % (0.5-1.5); BG FRACTION INSPIRED OXYGEN 40; BG HCO3 ACT 25.8 mmol/L (22.0-26.0); BG METHEMOGLOBIN 0.4 % (0.0-1.5); BG OXYHEMOGLOBIN 97.3 % (94.0-97.0); BG PCO2 35.4 mmHg (35.0-45.0); BG PH 7.481 (7.350-7.450); BG PO2 114.1 mmHg (75.0-100.0); BG PRESSURE SUPPORT 15; BG SAMPLE SITE RIGHT RADIAL; BG TIDAL VOLUME(mL) 450 mL; BG TOTAL HEMOGLOBIN 8.5 g/dL (12.0-18.0); BG VENT MODE VENT - SIMV; BG VENT RATE 10 set
[2020-01-28] MEDS: PHENYLEPHRINE 80 MG in DEXT 5% WATER 492 ML IV PRN (20:11)
[2020-01-28] MEDS: MIDAZOLAM HCL 100 MG in DEXT 5% WATER 80 ML IV PRN (21:57)
[2020-01-28] MEDS: ONDANSETRON HCL 4MG/2ML INJ IV PRN (21:58)
[2020-01-29] VITALS (72 sets, daily range): BP systolic 84–175; BP diastolic 57–120
[2020-01-29] MEDS: IPRATROPIUM BROMIDE (0.02%) 0.5MG/2.5ML NEB HHN SCH ×6 (04:11→23:59)
[2020-01-29] MEDS: FENTANYL CITRATE/PF 1,000 MCG in SODIUM CHLORIDE 0.9% 80 ML IV PRN (05:34)
[2020-01-29] MEDS: MIDODRINE HCL 5MG TABLET NG SCH ×3 (06:00→22:00)
[2020-01-29 06:38] LABS: HEMATOCRIT. 23.4 % (42.0-52.0); MEAN CORPUSCULAR HEMOGLOBIN 28.4 pg (28.0-32.0); MEAN CORPUSCULAR VOLUME 83.4 fL (80.0-94.0); MEAN PLATELET VOLUME 9.1 fl (7.4-10.4); PLATELET 189 x1000/uL (130-400); RED CELL DISTRIBUTION WIDTH 15.2 % (11.6-14.6)
[2020-01-29] MEDS: HYDROCORTISONE SOD SUCCINATE 100 MG/2 ML VIAL IV SCH ×3 (06:51→22:14)
[2020-01-29 07:15] LABS: PHOSPHORUS 3.6 mg/dL (2.5-4.9)
[2020-01-29 08:34] LABS: BG BASE EXCESS 3.5 mmol/L (-2.0-2.0); BG CARBOXYHEMOGLOBIN 0.3 % (0.5-1.5); BG DEOXYHEMOGLOBIN 1.6 % (0.0-5.0); BG FRACTION INSPIRED OXYGEN 40; BG HCO3 ACT 28.1 mmol/L (22.0-26.0); BG METHEMOGLOBIN 0.4 % (0.0-1.5); BG OXYGEN SATURATION 98.4 % (92.0-98.5); BG OXYHEMOGLOBIN 97.7 % (94.0-97.0); BG PH 7.433 (7.350-7.450); BG PO2 137.3 mmHg (75.0-100.0); BG PRESSURE SUPPORT 15; BG SAMPLE SITE RIGHT RADIAL; BG TIDAL VOLUME(mL) 450 mL; BG TOTAL HEMOGLOBIN 8.1 g/dL (12.0-18.0); BG VENT MODE VENT - SIMV; BG VENT RATE 10 set
[2020-01-29] MEDS: AMPICILLIN SOD/SULBACTAM NA 3 G in SODIUM CHLORIDE 0.9% 100 ML IV SCH ×2 (09:48→21:00)
[2020-01-29] MEDS: DEXT 5%/0.9% NACL KCL 20MEQ/L 1,000 ML IV SCH ×2 (09:48→18:03)
[2020-01-29] MEDS: PANTOPRAZOLE SODIUM 40 MG/VIAL IV SCH (09:49)
[2020-01-29] MEDS: ZINC SULFATE 220 MG ( 50 ) CAPSULE PO SCH (09:49)
[2020-01-29] MEDS: DOCUSATE SODIUM 100MG CAPSULE PO PRN (09:49)
[2020-01-29] MEDS: ASPIRIN 325MG EC TABLET PO SCH (09:49)
[2020-01-29] MEDS: ASCORBIC ACID 500 MG TABLET PO SCH ×2 (09:49→21:00)
[2020-01-29] MEDS: CALCITRIOL 1MCG/ML AMP IV SCH (09:51)
[2020-01-29] MEDS: SODIUM HYPOCHLORITE (0.25%) 480ML SOLUTION (HALF STRENGTH) TOP SCH ×3 (09:51→18:03)
[2020-01-29] MEDS ORDERED: FENTANYL CITRATE/PF 500 MCG in SODIUM CHLORIDE 0.9% 40 ML IV PRN (10:45)
[2020-01-29] MEDS ORDERED: PROPOFOL 10MG/ML 100ML 100 ML IV PRN (10:45)
[2020-01-29] MEDS: ENOXAPARIN 80MG/0.8ML SYR SUBCUT SCH (13:10)
[2020-01-29] MEDS: ONDANSETRON HCL 4MG/2ML INJ IV PRN (22:15)
[2020-01-29] MEDS: ACETAMINOPHEN 325MG TABLET PO PRN (22:16)
[2020-01-30] VITALS (55 sets, daily range): BP systolic 106–174; BP diastolic 67–105
[2020-01-30] MEDS: IPRATROPIUM BROMIDE (0.02%) 0.5MG/2.5ML NEB HHN SCH ×4 (03:57→20:50)
[2020-01-30] MEDS: DEXT 5%/0.9% NACL KCL 20MEQ/L 1,000 ML IV SCH ×3 (04:00→23:15)
[2020-01-30] MEDS: MIDODRINE HCL 5MG TABLET NG SCH ×3 (06:00→22:00)
[2020-01-30 06:34] LABS: HEMOGLOBIN. 7.3 g/dL (14.0-18.0); MEAN CORPUSCULAR HEMOGLOBIN 28.4 pg (28.0-32.0); MEAN CORPUSCULAR VOLUME 85.9 fL (80.0-94.0); MEAN PLATELET VOLUME 8.8 fl (7.4-10.4); PLATELET 198 x1000/uL (130-400); RED BLOOD CELL COUNT 2.56 mill/uL (4.7-6.1)
[2020-01-30 07:48] LABS: PHOSPHORUS 4.8 mg/dL (2.5-4.9)
[2020-01-30] MEDS: AMPICILLIN SOD/SULBACTAM NA 3 G in SODIUM CHLORIDE 0.9% 100 ML IV SCH ×2 (08:56→21:00)
[2020-01-30] MEDS: ZINC SULFATE 220 MG ( 50 ) CAPSULE PO SCH (08:57)
[2020-01-30] MEDS: ASPIRIN 325MG EC TABLET PO SCH (08:57)
[2020-01-30] MEDS: ASCORBIC ACID 500 MG TABLET PO SCH ×2 (08:57→21:00)
[2020-01-30] MEDS: SODIUM HYPOCHLORITE (0.25%) 480ML SOLUTION (HALF STRENGTH) TOP SCH ×3 (08:57→17:59)
[2020-01-30] MEDS: PANTOPRAZOLE SODIUM 40 MG/VIAL IV SCH (09:00)
[2020-01-30] MEDS: CALCITRIOL 1MCG/ML AMP IV SCH (09:00)
[2020-01-30] MEDS: DILTIAZEM HCL 125 MG in DEXT 5% WATER 100 ML IV PRN (10:30)
[2020-01-30 10:53] LABS: PLATELET ESTIMATE NORMAL
[2020-01-30] MEDS: PHENYLEPHRINE 80 MG in DEXT 5% WATER 492 ML IV PRN ×2 (11:31→18:00)
[2020-01-30] MEDS: IPRATROPIUM/ALBUTEROL 0.5-3(2.5)MG/3ML NEB HHN PRN (11:34)
[2020-01-30] MEDS: HYDROCORTISONE SOD SUCCINATE 100 MG/2 ML VIAL IV SCH ×2 (15:12→22:00)
[2020-01-30 18:01] LABS: PLATELET ESTIMATE NORMAL
[2020-01-31] VITALS (51 sets, daily range): BP systolic 111–155; BP diastolic 60–97
[2020-01-31] MEDS: IPRATROPIUM BROMIDE (0.02%) 0.5MG/2.5ML NEB HHN SCH ×6 (00:51→20:39)
[2020-01-31 06:49] LABS: HEMATOCRIT. 21.8 % (42.0-52.0); HEMOGLOBIN. 7.4 g/dL (14.0-18.0); MEAN CORPUSCULAR HEMOGLOBIN 28.9 pg (28.0-32.0); MEAN CORPUSCULAR VOLUME 85.4 fL (80.0-94.0); PLATELET 213 x1000/uL (130-400); RED BLOOD CELL COUNT 2.55 mill/uL (4.7-6.1); RED CELL DISTRIBUTION WIDTH 15.2 % (11.6-14.6)
[2020-01-31 06:53] LABS: PHOSPHORUS 4.1 mg/dL (2.5-4.9)
[2020-01-31 08:32] LABS: BG BASE EXCESS 1.7 mmol/L (-2.0-2.0); BG DEOXYHEMOGLOBIN 1.9 % (0.0-5.0); BG FRACTION INSPIRED OXYGEN 40; BG HCO3 ACT 24.2 mmol/L (22.0-26.0); BG METHEMOGLOBIN 0.3 % (0.0-1.5); BG OXYGEN SATURATION 98.1 % (92.0-98.5); BG OXYHEMOGLOBIN 97.8 % (94.0-97.0); BG PCO2 28.6 mmHg (35.0-45.0); BG PH 7.546 (7.350-7.450); BG PO2 116.6 mmHg (75.0-100.0); BG SAMPLE SITE RIGHT RADIAL; BG TIDAL VOLUME(mL) 450 mL; BG TOTAL HEMOGLOBIN 6.4 g/dL (12.0-18.0); BG VENT MODE VENT - A/C; BG VENT RATE 12 set
[2020-01-31] MEDS: AMPICILLIN SOD/SULBACTAM NA 3 G in SODIUM CHLORIDE 0.9% 100 ML IV SCH ×2 (08:32→21:06)
[2020-01-31] MEDS: CALCITRIOL 1MCG/ML AMP IV SCH (08:32)
[2020-01-31] MEDS: ASCORBIC ACID 500 MG TABLET PO SCH ×2 (08:32→21:06)
[2020-01-31] MEDS: SODIUM HYPOCHLORITE (0.25%) 480ML SOLUTION (HALF STRENGTH) TOP SCH ×3 (08:33→18:12)
[2020-01-31] MEDS: ZINC SULFATE 220 MG ( 50 ) CAPSULE PO SCH (08:33)
[2020-01-31] MEDS: PANTOPRAZOLE SODIUM 40 MG/VIAL IV SCH (08:33)
[2020-01-31] MEDS: ASPIRIN 325MG EC TABLET PO SCH (08:54)
[2020-01-31] MEDS: DILTIAZEM HCL 125 MG in DEXT 5% WATER 100 ML IV PRN (11:20)
[2020-01-31] MEDS: DEXT 5%/0.9% NACL KCL 20MEQ/L 1,000 ML IV SCH (11:20)
[2020-01-31] MEDS: MIDODRINE HCL 5MG TABLET NG SCH ×2 (14:27→22:00)
[2020-01-31] MEDS: HYDROCORTISONE SOD SUCCINATE 100 MG/2 ML VIAL IV SCH ×2 (14:28→21:07)
[2020-01-31 15:53] LABS: PLATELET ESTIMATE NORMAL
[2020-01-31] MEDS: ONDANSETRON HCL 4MG/2ML INJ IV PRN (21:07)
[2020-01-31] MEDS: ACETAMINOPHEN 325MG TABLET PO PRN (21:07)
[2020-02-01] VITALS (39 sets, daily range): BP systolic 93–140; BP diastolic 50–91
[2020-02-01] MEDS: IPRATROPIUM BROMIDE (0.02%) 0.5MG/2.5ML NEB HHN SCH ×4 (00:19→20:35)
[2020-02-01] MEDS: MIDODRINE HCL 5MG TABLET NG SCH ×3 (06:00→22:00)
[2020-02-01 06:12] LABS: HEMATOCRIT. 21.3 % (42.0-52.0); HEMOGLOBIN. 7.2 g/dL (14.0-18.0); MEAN CORPUSCULAR HEMOGLOBIN 28.8 pg (28.0-32.0); MEAN CORPUSCULAR VOLUME 85.4 fL (80.0-94.0); MEAN PLATELET VOLUME 7.9 fl (7.4-10.4); PLATELET 217 x1000/uL (130-400); RED BLOOD CELL COUNT 2.49 mill/uL (4.7-6.1); RED CELL DISTRIBUTION WIDTH 15.3 % (11.6-14.6)
[2020-02-01] MEDS: HYDROCORTISONE SOD SUCCINATE 100 MG/2 ML VIAL IV SCH ×2 (06:12→21:00)
[2020-02-01 06:16] LABS: CHLORIDE 113 mEq/L (98-107)
[2020-02-01] MEDS: DILTIAZEM HCL 125 MG in DEXT 5% WATER 100 ML IV PRN (06:20)
[2020-02-01 06:27] LABS: PHOSPHORUS 4.3 mg/dL (2.5-4.9)
[2020-02-01] MEDS: CALCITRIOL 1MCG/ML AMP IV SCH (09:21)
[2020-02-01] MEDS: ASPIRIN 325MG EC TABLET PO SCH (09:21)
[2020-02-01] MEDS: ZINC SULFATE 220 MG ( 50 ) CAPSULE PO SCH (09:21)
[2020-02-01] MEDS: PANTOPRAZOLE SODIUM 40 MG/VIAL IV SCH (09:21)
[2020-02-01] MEDS: ASCORBIC ACID 500 MG TABLET PO SCH ×2 (09:21→21:00)
[2020-02-01] MEDS: SODIUM HYPOCHLORITE (0.25%) 480ML SOLUTION (HALF STRENGTH) TOP SCH ×3 (09:21→16:43)
[2020-02-01] MEDS: AMPICILLIN SOD/SULBACTAM NA 3 G in SODIUM CHLORIDE 0.9% 100 ML IV SCH ×2 (10:25→21:00)
[2020-02-01 10:39] LABS: PLATELET ESTIMATE NORMAL
[2020-02-01] MEDS: METOPROLOL TARTRATE 5MG/5ML VIAL IV PRN (13:34)
[2020-02-01 19:39] LABS: MEAN CORPUSCULAR HEMOGLOBIN 28.6 pg (28.0-32.0); MEAN CORPUSCULAR VOLUME 84.9 fL (80.0-94.0); PLATELET 211 x1000/uL (130-400); RED BLOOD CELL COUNT 2.02 mill/uL (4.7-6.1); RED CELL DISTRIBUTION WIDTH 15.2 % (11.6-14.6)
[2020-02-01 19:51] LABS: HEMATOCRIT 17.1 % (42.0-52.0); HEMOGLOBIN 5.8 g/dL (14.0-18.0)
[2020-02-01] MEDS: ACETAMINOPHEN 325MG TABLET PO PRN (23:36)
[2020-02-02] VITALS (71 sets, daily range): BP systolic 101–137; BP diastolic 55–97
[2020-02-02] MEDS: IPRATROPIUM BROMIDE (0.02%) 0.5MG/2.5ML NEB HHN SCH ×6 (00:39→19:54)
[2020-02-02] MEDS: METOPROLOL TARTRATE 5MG/5ML VIAL IV PRN ×2 (00:45→08:27)
[2020-02-02 05:33] LABS: MEAN CORPUSCULAR HEMOGLOBIN 29.1 pg (28.0-32.0); MEAN CORPUSCULAR VOLUME 86.5 fL (80.0-94.0); MEAN PLATELET VOLUME 8.4 fl (7.4-10.4); PLATELET 190 x1000/uL (130-400); RED BLOOD CELL COUNT 2.27 mill/uL (4.7-6.1); RED CELL DISTRIBUTION WIDTH 15.5 % (11.6-14.6)
[2020-02-02 05:42] LABS: PHOSPHORUS 4.3 mg/dL (2.5-4.9)
[2020-02-02] MEDS: MIDODRINE HCL 5MG TABLET NG SCH ×3 (06:00→13:25)
[2020-02-02 06:56] LABS: HEMATOCRIT. 19.6 % (42.0-52.0); HEMOGLOBIN. 6.6 g/dL (14.0-18.0)
[2020-02-02] MEDS: DILTIAZEM HCL 125 MG in DEXT 5% WATER 100 ML IV PRN ×2 (07:52→15:04)
[2020-02-02 08:26] LABS: PLATELET ESTIMATE NORMAL
[2020-02-02] MEDS: HYDROCORTISONE SOD SUCCINATE 100 MG/2 ML VIAL IV SCH (08:27)
[2020-02-02] MEDS: ASPIRIN 325MG EC TABLET PO SCH (08:27)
[2020-02-02] MEDS: ZINC SULFATE 220 MG ( 50 ) CAPSULE PO SCH (08:27)
[2020-02-02] MEDS: CALCITRIOL 1MCG/ML AMP IV SCH (08:28)
[2020-02-02] MEDS: SODIUM HYPOCHLORITE (0.25%) 480ML SOLUTION (HALF STRENGTH) TOP SCH ×3 (08:32→16:18)
[2020-02-02] MEDS: ASCORBIC ACID 500 MG TABLET PO SCH (08:32)
[2020-02-02] MEDS: PANTOPRAZOLE SODIUM 40 MG/VIAL IV SCH (08:40)
[2020-02-02] MEDS ORDERED: MIDODRINE HCL 5MG TABLET PO ONE (10:00)
[2020-02-02] MEDS: FENTANYL 1,000 MCG in SODIUM CHLORIDE 0.9% 100 ML IV PRN ×2 (10:50→21:43)
[2020-02-02] MEDS: DILTIAZEM HCL 30MG TABLET PO SCH (13:06)
[2020-02-02 17:40] LABS: HEMATOCRIT 23.1 % (42.0-52.0); HEMOGLOBIN 7.9 g/dL (14.0-18.0)
[2020-02-03] VITALS (89 sets, daily range): BP systolic 96–152; BP diastolic 49–92
[2020-02-03] MEDS: DILTIAZEM HCL 30MG TABLET PO SCH ×4 (00:47→21:16)
[2020-02-03] MEDS: AMPICILLIN SOD/SULBACTAM NA 3 G in SODIUM CHLORIDE 0.9% 100 ML IV SCH ×3 (00:47→20:38)
[2020-02-03] MEDS: MIDODRINE HCL 5MG TABLET NG SCH ×4 (00:48→22:00)
[2020-02-03] MEDS: ASCORBIC ACID 500 MG TABLET PO SCH ×3 (00:48→20:41)
[2020-02-03] MEDS: IPRATROPIUM BROMIDE (0.02%) 0.5MG/2.5ML NEB HHN SCH ×6 (00:56→21:15)
[2020-02-03] MEDS: DILTIAZEM HCL 125 MG in DEXT 5% WATER 100 ML IV PRN (03:06)
[2020-02-03 05:38] LABS: HEMATOCRIT. 22.7 % (42.0-52.0); HEMOGLOBIN. 7.8 g/dL (14.0-18.0); MEAN CORPUSCULAR HEMOGLOBIN 29.8 pg (28.0-32.0); MEAN CORPUSCULAR VOLUME 87.1 fL (80.0-94.0); MEAN PLATELET VOLUME 8.2 fl (7.4-10.4); PLATELET 198 x1000/uL (130-400); RED BLOOD CELL COUNT 2.61 mill/uL (4.7-6.1); RED CELL DISTRIBUTION WIDTH 15.9 % (11.6-14.6)
[2020-02-03 05:45] LABS: PHOSPHORUS 4.3 mg/dL (2.5-4.9)
[2020-02-03 08:36] LABS: BG BASE EXCESS -0.2 mmol/L (-2.0-2.0); BG CARBOXYHEMOGLOBIN 0.3 % (0.5-1.5); BG DEOXYHEMOGLOBIN 0.8 % (0.0-5.0); BG FRACTION INSPIRED OXYGEN 100; BG HCO3 ACT 24.2 mmol/L (22.0-26.0); BG METHEMOGLOBIN 0.7 % (0.0-1.5); BG OXYGEN SATURATION 99.2 % (92.0-98.5); BG OXYHEMOGLOBIN 98.2 % (94.0-97.0); BG PH 7.421 (7.350-7.450); BG PO2 309.1 mmHg (75.0-100.0); BG SAMPLE SITE RIGHT RADIAL; BG TIDAL VOLUME(mL) 450 mL; BG TOTAL HEMOGLOBIN 8.2 g/dL (12.0-18.0); BG VENT MODE VENT - A/C; BG VENT RATE 12 set
[2020-02-03] MEDS ORDERED: AMIODARONE HCL 50MG/ML 9ML VIAL IV ONE (09:00)
[2020-02-03] MEDS ORDERED: AMIODARONE HCL 50MG/ML 3ML VIAL IV ONE (09:00)
[2020-02-03] MEDS: HYDROCORTISONE SOD SUCCINATE 100 MG/2 ML VIAL IV SCH (09:08)
[2020-02-03] MEDS: PANTOPRAZOLE SODIUM 40 MG/VIAL IV SCH (09:08)
[2020-02-03] MEDS: CALCITRIOL 1MCG/ML AMP IV SCH (09:09)
[2020-02-03] MEDS: ZINC SULFATE 220 MG ( 50 ) CAPSULE PO SCH (09:09)
[2020-02-03] MEDS: SODIUM HYPOCHLORITE (0.25%) 480ML SOLUTION (HALF STRENGTH) TOP SCH ×3 (09:10→17:37)
[2020-02-03] MEDS: HEPARIN 5000 UNITS/ML VIAL SUBCUT SCH ×2 (09:56→20:40)
[2020-02-03] MEDS: AMIODARONE HCL 200 MG TABLET PO SCH ×2 (09:56→20:40)
[2020-02-03] MEDS ORDERED: AMIODARONE HCL 900 MG in DEXT 5% WATER 500 ML IV SCH (10:00)
[2020-02-03] MEDS ORDERED: AMIODARONE HCL 150 MG in DEXT 5% WATER 100 ML IV SCH (10:00)
[2020-02-03] MEDS: POTASSIUM CHLORIDE INJ 10 MEQ in DEXTROSE 5% WATER 1,000 ML IV SCH (10:10)
[2020-02-03] MEDS ORDERED: MAGNESIUM 4 G PREMIX 100 ML IV SCH (11:00)
[2020-02-03 12:18] LABS: PLATELET ESTIMATE NORMAL
[2020-02-03] MEDS: FENTANYL 1,000 MCG in SODIUM CHLORIDE 0.9% 100 ML IV PRN (12:34)
[2020-02-04] VITALS (84 sets, daily range): BP systolic 102–145; BP diastolic 64–104
[2020-02-04] MEDS: IPRATROPIUM BROMIDE (0.02%) 0.5MG/2.5ML NEB HHN SCH ×6 (00:52→20:20)
[2020-02-04] MEDS: FENTANYL CITRATE/PF 1,000 MCG in SODIUM CHLORIDE 0.9% 80 ML IV PRN ×2 (02:28→19:29)
[2020-02-04] MEDS: DILTIAZEM HCL 125 MG in DEXT 5% WATER 100 ML IV PRN (02:29)
[2020-02-04 06:04] LABS: HEMATOCRIT. 23.6 % (42.0-52.0); MEAN CORPUSCULAR HEMOGLOBIN 29.9 pg (28.0-32.0); MEAN CORPUSCULAR VOLUME 88.6 fL (80.0-94.0); MEAN PLATELET VOLUME 8.1 fl (7.4-10.4); PLATELET 205 x1000/uL (130-400); RED BLOOD CELL COUNT 2.67 mill/uL (4.7-6.1); RED CELL DISTRIBUTION WIDTH 16.6 % (11.6-14.6)
[2020-02-04 06:15] LABS: CHLORIDE 118 mEq/L (98-107)
[2020-02-04] MEDS: MIDODRINE HCL 5MG TABLET NG SCH (06:23)
[2020-02-04] MEDS: DILTIAZEM HCL 30MG TABLET PO SCH ×3 (06:24→21:50)
[2020-02-04 06:31] LABS: PHOSPHORUS 3.4 mg/dL (2.5-4.9)
[2020-02-04] MEDS: ZINC SULFATE 220 MG ( 50 ) CAPSULE PO SCH (09:22)
[2020-02-04] MEDS: PANTOPRAZOLE SODIUM 40 MG/VIAL IV SCH (09:22)
[2020-02-04] MEDS: AMIODARONE HCL 200 MG TABLET PO SCH ×2 (09:22→21:50)
[2020-02-04] MEDS: HYDROCORTISONE SOD SUCCINATE 100 MG/2 ML VIAL IV SCH (09:22)
[2020-02-04] MEDS: ASCORBIC ACID 500 MG TABLET PO SCH ×2 (09:22→21:50)
[2020-02-04] MEDS: POTASSIUM CHLORIDE INJ 10 MEQ in DEXTROSE 5% WATER 1,000 ML IV SCH ×2 (09:22→21:25)
[2020-02-04] MEDS: AMPICILLIN SOD/SULBACTAM NA 3 G in SODIUM CHLORIDE 0.9% 100 ML IV SCH ×2 (09:23→21:50)
[2020-02-04] MEDS: CALCITRIOL 1MCG/ML AMP IV SCH (09:23)
[2020-02-04] MEDS: HEPARIN 5000 UNITS/ML VIAL SUBCUT SCH ×2 (09:23→21:51)
[2020-02-04] MEDS: SODIUM HYPOCHLORITE (0.25%) 480ML SOLUTION (HALF STRENGTH) TOP SCH ×3 (09:24→16:25)
[2020-02-04] MEDS ORDERED: AMIODARONE HCL 150 MG in DEXT 5% WATER 100 ML IV ONE (09:30)
[2020-02-04] MEDS ORDERED: MAGNESIUM 4 G PREMIX 100 ML IV ONE (09:30)
[2020-02-04 09:47] LABS: PLATELET ESTIMATE NORMAL
[2020-02-04] MEDS: MIDODRINE HCL 2.5MG TABLET NG SCH ×2 (13:25→21:51)
[2020-02-04] MEDS ORDERED: FUROSEMIDE 40MG/4ML VIAL IVP NR (16:15)
[2020-02-04] MEDS ORDERED: MAGNESIUM 4 G PREMIX 100 ML IV NR (18:00)
[2020-02-05] VITALS (45 sets, daily range): BP systolic 108–138; BP diastolic 61–82
[2020-02-05] MEDS: IPRATROPIUM BROMIDE (0.02%) 0.5MG/2.5ML NEB HHN SCH ×6 (00:09→20:03)
[2020-02-05] MEDS: DILTIAZEM HCL 125 MG in DEXT 5% WATER 100 ML IV PRN (04:55)
[2020-02-05 05:24] LABS: HEMATOCRIT. 25.1 % (42.0-52.0); HEMOGLOBIN. 8.7 g/dL (14.0-18.0); MEAN CORPUSCULAR HEMOGLOBIN 30.7 pg (28.0-32.0); MEAN CORPUSCULAR VOLUME 88.8 fL (80.0-94.0); MEAN PLATELET VOLUME 8.2 fl (7.4-10.4); PLATELET 195 x1000/uL (130-400); RED BLOOD CELL COUNT 2.83 mill/uL (4.7-6.1); RED CELL DISTRIBUTION WIDTH 16.8 % (11.6-14.6)
[2020-02-05] MEDS: MIDODRINE HCL 2.5MG TABLET NG SCH ×3 (05:29→21:55)
[2020-02-05] MEDS: DILTIAZEM HCL 30MG TABLET PO SCH (05:29)
[2020-02-05 05:45] LABS: PHOSPHORUS 3.2 mg/dL (2.5-4.9)
[2020-02-05] MEDS ORDERED: MAGNESIUM 2 G PREMIX 50 ML IV NR (07:00)
[2020-02-05] MEDS ORDERED: AMIODARONE HCL 150 MG in DEXT 5% WATER 100 ML IV NR (07:00)
[2020-02-05] MEDS ORDERED: AMIODARONE HCL 900 MG in DEXT 5% WATER 482 ML IV PRN (08:00)
[2020-02-05] MEDS: HYDROCORTISONE SOD SUCCINATE 100 MG/2 ML VIAL IV SCH (08:01)
[2020-02-05] MEDS: PANTOPRAZOLE SODIUM 40 MG/VIAL IV SCH ×2 (08:02→21:52)
[2020-02-05] MEDS: ZINC SULFATE 220 MG ( 50 ) CAPSULE PO SCH (08:02)
[2020-02-05] MEDS: AMIODARONE HCL 200 MG TABLET PO SCH ×2 (08:02→21:00)
[2020-02-05] MEDS: ASCORBIC ACID 500 MG TABLET PO SCH ×2 (08:02→21:53)
[2020-02-05] MEDS: CALCITRIOL 1MCG/ML AMP IV SCH (08:02)
[2020-02-05] MEDS: SODIUM HYPOCHLORITE (0.25%) 480ML SOLUTION (HALF STRENGTH) TOP SCH ×3 (08:03→18:14)
[2020-02-05] MEDS: AMPICILLIN SOD/SULBACTAM NA 3 G in SODIUM CHLORIDE 0.9% 100 ML IV SCH ×2 (08:03→21:53)
[2020-02-05 08:09] LABS: BG BASE EXCESS 4.8 mmol/L (-2.0-2.0); BG CARBOXYHEMOGLOBIN 0.4 % (0.5-1.5); BG DEOXYHEMOGLOBIN 2.5 % (0.0-5.0); BG FRACTION INSPIRED OXYGEN 35; BG HCO3 ACT 29.1 mmol/L (22.0-26.0); BG METHEMOGLOBIN 0.5 % (0.0-1.5); BG OXYGEN SATURATION 97.5 % (92.0-98.5); BG OXYHEMOGLOBIN 96.6 % (94.0-97.0); BG PCO2 42.1 mmHg (35.0-45.0); BG PH 7.458 (7.350-7.450); BG PO2 100.3 mmHg (75.0-100.0); BG SAMPLE SITE RIGHT RADIAL; BG TIDAL VOLUME(mL) 450 mL; BG TOTAL HEMOGLOBIN 7.5 g/dL (12.0-18.0); BG VENT MODE VENT - A/C; BG VENT RATE 12 set
[2020-02-05] MEDS ORDERED: MORPHINE SULFATE 2 MG/ML CPJ (NOT FOR IM USE) IV PRN (09:00)
[2020-02-05 09:37] LABS: PLATELET ESTIMATE NORMAL
[2020-02-05] MEDS ORDERED: KCL 20MEQ/100ML PREMIX 100 ML IV NR (10:00)
[2020-02-05] MEDS ORDERED: SODIUM BICARBONATE 4% (2.4MEQ) 5ML VIAL IV ONE (11:24)
[2020-02-05] MEDS ORDERED: LIDOCAINE HCL 1% 20ML VIAL (Pyxis) INJ ONE (11:24)
[2020-02-05] MEDS: POTASSIUM CHLORIDE INJ 10 MEQ in DEXTROSE 5% WATER 1,000 ML IV SCH (13:31)
[2020-02-06] VITALS (56 sets, daily range): BP systolic 106–135; BP diastolic 57–118
[2020-02-06] MEDS: IPRATROPIUM BROMIDE (0.02%) 0.5MG/2.5ML NEB HHN SCH ×6 (00:10→20:21)
[2020-02-06] MEDS: MIDODRINE HCL 2.5MG TABLET NG SCH ×3 (06:00→21:23)
[2020-02-06] MEDS: POTASSIUM CHLORIDE INJ 10 MEQ in DEXTROSE 5% WATER 1,000 ML IV SCH ×2 (06:27→21:24)
[2020-02-06 06:36] LABS: MEAN CORPUSCULAR HEMOGLOBIN 29.9 pg (28.0-32.0); MEAN CORPUSCULAR VOLUME 87.7 fL (80.0-94.0); MEAN PLATELET VOLUME 8.6 fl (7.4-10.4); PLATELET 181 x1000/uL (130-400); RED BLOOD CELL COUNT 2.36 mill/uL (4.7-6.1); RED CELL DISTRIBUTION WIDTH 17.7 % (11.6-14.6)
[2020-02-06 06:40] LABS: INR 1.1; PARTIAL THROMBOPLASTIN TIME 27.1 sec (23.4-31.0); PROTHROMBIN TIME 11.2 sec (9.6-11.0)
[2020-02-06 07:00] LABS: HEMATOCRIT. 20.7 % (42.0-52.0); HEMOGLOBIN. 7.1 g/dL (14.0-18.0)
[2020-02-06 07:07] LABS: CHLORIDE 115 mEq/L (98-107)
[2020-02-06 07:18] LABS: PHOSPHORUS 2.7 mg/dL (2.5-4.9)
[2020-02-06 08:10] LABS: HEPATITIS B SURFACE ANTIGEN NEGATIVE
[2020-02-06 08:40] LABS: HEPATITIS A AB IGM NEGATIVE (NEGATIVE)
[2020-02-06] MEDS: ASCORBIC ACID 500 MG TABLET PO SCH ×2 (08:46→21:23)
[2020-02-06] MEDS: ZINC SULFATE 220 MG ( 50 ) CAPSULE PO SCH (08:46)
[2020-02-06] MEDS: AMIODARONE HCL 200 MG TABLET PO SCH ×2 (08:46→21:23)
[2020-02-06] MEDS: CALCITRIOL 1MCG/ML AMP IV SCH (08:53)
[2020-02-06] MEDS: HYDROCORTISONE SOD SUCCINATE 100 MG/2 ML VIAL IV SCH (08:53)
[2020-02-06] MEDS: PANTOPRAZOLE SODIUM 40 MG/VIAL IV SCH ×2 (08:53→21:23)
[2020-02-06] MEDS: SODIUM HYPOCHLORITE (0.25%) 480ML SOLUTION (HALF STRENGTH) TOP SCH ×3 (08:54→17:22)
[2020-02-06] MEDS: AMPICILLIN SOD/SULBACTAM NA 3 G in SODIUM CHLORIDE 0.9% 100 ML IV SCH ×2 (09:57→21:23)
[2020-02-06 10:36] LABS: PLATELET ESTIMATE NORMAL
[2020-02-06] MEDS ORDERED: POTASSIUM CHLORIDE INJ 40 MEQ in DEXT 5% WATER 250 ML IV SCH (11:00)
[2020-02-06] MEDS ORDERED: MIDAZOLAM HCL 5 MG/5 ML VIAL IV PRN (14:55)
[2020-02-06] MEDS ORDERED: MIDAZOLAM HCL 5 MG/5 ML VIAL ONE (14:55)
[2020-02-06] MEDS ORDERED: FENTANYL CITRATE/PF 50MCG/ML 2ML VIAL ONE (14:55)
[2020-02-06] MEDS ORDERED: MAGNESIUM 4 G PREMIX 100 ML IV SCH (15:00)
[2020-02-06 16:23] LABS: HEMATOCRIT 22.2 % (42.0-52.0); HEMOGLOBIN 7.7 g/dL (14.0-18.0)
[2020-02-07] VITALS (39 sets, daily range): BP systolic 88–148; BP diastolic 51–92
[2020-02-07] MEDS: IPRATROPIUM BROMIDE (0.02%) 0.5MG/2.5ML NEB HHN SCH ×5 (00:14→21:01)
[2020-02-07] MEDS: MIDODRINE HCL 2.5MG TABLET NG SCH (05:56)
[2020-02-07 06:40] LABS: HEMATOCRIT. 22.4 % (42.0-52.0); HEMOGLOBIN. 7.6 g/dL (14.0-18.0); MEAN CORPUSCULAR HEMOGLOBIN 29.9 pg (28.0-32.0); MEAN CORPUSCULAR VOLUME 88.4 fL (80.0-94.0); MEAN PLATELET VOLUME 8.8 fl (7.4-10.4); PLATELET 166 x1000/uL (130-400); RED BLOOD CELL COUNT 2.54 mill/uL (4.7-6.1); RED CELL DISTRIBUTION WIDTH 16.5 % (11.6-14.6)
[2020-02-07 06:48] LABS: CHLORIDE 113 mEq/L (98-107)
[2020-02-07 06:54] LABS: PHOSPHORUS 2.5 mg/dL (2.5-4.9)
[2020-02-07] MEDS: HYDROCORTISONE SOD SUCCINATE 100 MG/2 ML VIAL IV SCH (08:11)
[2020-02-07] MEDS: AMIODARONE HCL 200 MG TABLET PO SCH ×2 (08:12→21:10)
[2020-02-07] MEDS: ASCORBIC ACID 500 MG TABLET PO SCH ×2 (08:12→21:10)
[2020-02-07] MEDS: CALCITRIOL 1MCG/ML AMP IV SCH (08:12)
[2020-02-07] MEDS: AMPICILLIN SOD/SULBACTAM NA 3 G in SODIUM CHLORIDE 0.9% 100 ML IV SCH ×2 (08:12→21:11)
[2020-02-07] MEDS: PANTOPRAZOLE SODIUM 40 MG/VIAL IV SCH ×2 (08:12→21:10)
[2020-02-07] MEDS: SODIUM HYPOCHLORITE (0.25%) 480ML SOLUTION (HALF STRENGTH) TOP SCH ×3 (08:13→17:50)
[2020-02-07] MEDS: ZINC SULFATE 220 MG ( 50 ) CAPSULE PO SCH (08:14)
[2020-02-07] MEDS ORDERED: MAGNESIUM 4 G PREMIX 100 ML IV SCH (11:00)
[2020-02-07 11:09] LABS: PLATELET ESTIMATE NORMAL
[2020-02-07] MEDS ORDERED: POTASSIUM CHLORIDE INJ 40 MEQ in DEXT 5% WATER 250 ML IV NR (11:30)
[2020-02-07] MEDS: POTASSIUM CHLORIDE INJ 10 MEQ in DEXTROSE 5% WATER 1,000 ML IV SCH (15:30)
[2020-02-07] MEDS ORDERED: AMIODARONE HCL 50MG/ML 3ML VIAL IV ONE (17:45)
[2020-02-07] MEDS ORDERED: AMIODARONE HCL 50MG/ML 9ML VIAL IV ONE (17:45)
[2020-02-07] MEDS ORDERED: MAGNESIUM 2 G PREMIX 50 ML IV NR (19:30)
[2020-02-07] MEDS ORDERED: AMIODARONE HCL 150 MG in DEXT 5% WATER 100 ML IV NR (19:30)
[2020-02-08] VITALS (80 sets, daily range): BP systolic 87–150; BP diastolic 32–116
[2020-02-08] MEDS: IPRATROPIUM BROMIDE (0.02%) 0.5MG/2.5ML NEB HHN SCH ×6 (00:51→20:07)
[2020-02-08] MEDS: AMIODARONE HCL 900 MG in DEXT 5% WATER 482 ML IV PRN (03:48)
[2020-02-08 05:59] LABS: BASOPHILS % 0.7 % (0.0-2.0); EOSINOPHILS % 0.4 % (0.0-5.0); HEMOGLOBIN. 7.8 g/dL (14.0-18.0); LYMPHOCYTES % 7.2 % (20.0-50.0); MEAN CORPUSCULAR HEMOGLOBIN 29.9 pg (28.0-32.0); MEAN CORPUSCULAR VOLUME 87.8 fL (80.0-94.0); MEAN PLATELET VOLUME 8.6 fl (7.4-10.4); MONOCYTES % 8.9 % (2.0-8.0); NEUTROPHILS % 82.8 % (40.0-76.0); PLATELET 164 x1000/uL (130-400); RED BLOOD CELL COUNT 2.61 mill/uL (4.7-6.1); RED CELL DISTRIBUTION WIDTH 16.5 % (11.6-14.6)
[2020-02-08 06:06] LABS: CHLORIDE 111 mEq/L (98-107)
[2020-02-08 06:13] LABS: PHOSPHORUS 2.7 mg/dL (2.5-4.9)
[2020-02-08] MEDS: AMPICILLIN SOD/SULBACTAM NA 3 G in SODIUM CHLORIDE 0.9% 100 ML IV SCH ×2 (08:26→20:27)
[2020-02-08] MEDS: HYDROCORTISONE SOD SUCCINATE 100 MG/2 ML VIAL IV SCH (08:26)
[2020-02-08] MEDS: PANTOPRAZOLE SODIUM 40 MG/VIAL IV SCH ×2 (08:26→20:27)
[2020-02-08] MEDS: CALCITRIOL 1MCG/ML AMP IV SCH (08:29)
[2020-02-08] MEDS: ASCORBIC ACID 500 MG TABLET PO SCH ×2 (08:29→20:27)
[2020-02-08] MEDS: ZINC SULFATE 220 MG ( 50 ) CAPSULE PO SCH (08:29)
[2020-02-08] MEDS: AMIODARONE HCL 200 MG TABLET PO SCH ×2 (08:29→20:27)
[2020-02-08] MEDS: SODIUM HYPOCHLORITE (0.25%) 480ML SOLUTION (HALF STRENGTH) TOP SCH ×3 (08:50→16:08)
[2020-02-08] MEDS: POTASSIUM CHLORIDE INJ 10 MEQ in DEXTROSE 5% WATER 1,000 ML IV SCH ×2 (10:23→19:03)
[2020-02-08] MEDS: ASPIRIN 81MG TABLET GT SCH (11:20)
[2020-02-08] MEDS ORDERED: MAGNESIUM 4 G PREMIX 100 ML IV SCH (12:00)
[2020-02-08] MEDS: ACETYLCYSTEINE 100MG/ML 10% VIAL 4ML INH SCH (15:48)
[2020-02-09] VITALS (50 sets, daily range): BP systolic 93–152; BP diastolic 54–91
[2020-02-09] MEDS: IPRATROPIUM BROMIDE (0.02%) 0.5MG/2.5ML NEB HHN SCH ×6 (00:14→20:53)
[2020-02-09] MEDS: ACETYLCYSTEINE 100MG/ML 10% VIAL 4ML INH SCH ×3 (00:14→15:30)
[2020-02-09] MEDS ORDERED: LORAZEPAM 2MG/ML CPJ IV PRN (00:30)
[2020-02-09] MEDS: AMIODARONE HCL 900 MG in DEXT 5% WATER 482 ML IV PRN (01:35)
[2020-02-09] MEDS: POTASSIUM CHLORIDE INJ 10 MEQ in DEXTROSE 5% WATER 1,000 ML IV SCH ×2 (04:20→15:15)
[2020-02-09 06:00] LABS: BASOPHILS % 0.7 % (0.0-2.0); EOSINOPHILS % 0.5 % (0.0-5.0); HEMATOCRIT. 23.1 % (42.0-52.0); HEMOGLOBIN. 7.6 g/dL (14.0-18.0); LYMPHOCYTES % 10.6 % (20.0-50.0); MEAN CORPUSCULAR HEMOGLOBIN 29.1 pg (28.0-32.0); MEAN PLATELET VOLUME 8.9 fl (7.4-10.4); MONOCYTES % 9.3 % (2.0-8.0); NEUTROPHILS % 78.9 % (40.0-76.0); PLATELET 167 x1000/uL (130-400); RED BLOOD CELL COUNT 2.62 mill/uL (4.7-6.1); RED CELL DISTRIBUTION WIDTH 16.6 % (11.6-14.6)
[2020-02-09 06:03] LABS: CHLORIDE 107 mEq/L (98-107)
[2020-02-09 06:11] LABS: PHOSPHORUS 2.7 mg/dL (2.5-4.9)
[2020-02-09 07:50] LABS: BG CARBOXYHEMOGLOBIN 0.3 % (0.5-1.5); BG DEOXYHEMOGLOBIN 1.5 % (0.0-5.0); BG FRACTION INSPIRED OXYGEN 35; BG HCO3 ACT 25.3 mmol/L (22.0-26.0); BG METHEMOGLOBIN 0.3 % (0.0-1.5); BG OXYGEN SATURATION 98.5 % (92.0-98.5); BG OXYHEMOGLOBIN 97.9 % (94.0-97.0); BG PCO2 29.6 mmHg (35.0-45.0); BG PO2 141.1 mmHg (75.0-100.0); BG PRESSURE SUPPORT 12; BG SAMPLE SITE RIGHT RADIAL; BG TIDAL VOLUME(mL) 450 mL; BG TOTAL HEMOGLOBIN 8.2 g/dL (12.0-18.0); BG VENT MODE VENT - SIMV; BG VENT RATE 10 set
[2020-02-09] MEDS: PANTOPRAZOLE SODIUM 40 MG/VIAL IV SCH ×2 (08:52→22:11)
[2020-02-09] MEDS: ASCORBIC ACID 500 MG TABLET PO SCH ×2 (08:52→22:12)
[2020-02-09] MEDS: HYDROCORTISONE SOD SUCCINATE 100 MG/2 ML VIAL IV SCH (08:52)
[2020-02-09] MEDS: CALCITRIOL 1MCG/ML AMP IV SCH (08:52)
[2020-02-09] MEDS: AMIODARONE HCL 200 MG TABLET PO SCH ×2 (08:52→22:11)
[2020-02-09] MEDS: ASPIRIN 81MG TABLET GT SCH (08:52)
[2020-02-09] MEDS: SODIUM HYPOCHLORITE (0.25%) 480ML SOLUTION (HALF STRENGTH) TOP SCH ×3 (08:53→17:15)
[2020-02-09] MEDS: ZINC SULFATE 220 MG ( 50 ) CAPSULE PO SCH (08:53)
[2020-02-09] MEDS: AMPICILLIN SOD/SULBACTAM NA 3 G in SODIUM CHLORIDE 0.9% 100 ML IV SCH (09:58)
[2020-02-09] MEDS ORDERED: POTASSIUM CHLORIDE INJ 40 MEQ in DEXT 5% WATER 250 ML IV NR (10:00)
[2020-02-09] MEDS: MAGNESIUM 4 G PREMIX 100 ML IV SCH ×2 (10:03→17:20)
[2020-02-10] VITALS (13 sets, daily range): BP systolic 96–151; BP diastolic 58–83
[2020-02-10] MEDS: ACETYLCYSTEINE 100MG/ML 10% VIAL 4ML INH SCH ×3 (00:01→16:19)
[2020-02-10] MEDS: IPRATROPIUM BROMIDE (0.02%) 0.5MG/2.5ML NEB HHN SCH ×6 (00:01→19:55)
[2020-02-10] MEDS: POTASSIUM CHLORIDE INJ 10 MEQ in DEXTROSE 5% WATER 1,000 ML IV SCH (05:19)
[2020-02-10] MEDS: HYDROCORTISONE SOD SUCCINATE 100 MG/2 ML VIAL IV SCH (08:39)
[2020-02-10] MEDS: AMIODARONE HCL 200 MG TABLET PO SCH ×2 (08:41→20:32)
[2020-02-10] MEDS: ASPIRIN 81MG TABLET GT SCH (08:41)
[2020-02-10] MEDS: ZINC SULFATE 220 MG ( 50 ) CAPSULE PO SCH (08:41)
[2020-02-10] MEDS: ASCORBIC ACID 500 MG TABLET PO SCH ×2 (08:41→20:32)
[2020-02-10] MEDS: PANTOPRAZOLE SODIUM 40 MG/VIAL IV SCH ×2 (08:41→20:32)
[2020-02-10] MEDS: SODIUM HYPOCHLORITE (0.25%) 480ML SOLUTION (HALF STRENGTH) TOP SCH ×3 (08:42→18:08)
[2020-02-10] MEDS ORDERED: POTASSIUM CHLORIDE 20MEQ/PACKET PO SCH (09:00)
[2020-02-10 10:33] LABS: BASOPHILS % 0.5 % (0.0-2.0); EOSINOPHILS % 0.8 % (0.0-5.0); HEMATOCRIT. 22.3 % (42.0-52.0); HEMOGLOBIN. 7.5 g/dL (14.0-18.0); LYMPHOCYTES % 8.4 % (20.0-50.0); MEAN CORPUSCULAR HEMOGLOBIN 29.3 pg (28.0-32.0); MEAN PLATELET VOLUME 8.7 fl (7.4-10.4); MONOCYTES % 9.1 % (2.0-8.0); NEUTROPHILS % 81.2 % (40.0-76.0); PLATELET 167 x1000/uL (130-400); RED BLOOD CELL COUNT 2.57 mill/uL (4.7-6.1); RED CELL DISTRIBUTION WIDTH 16.4 % (11.6-14.6)
[2020-02-10 10:41] LABS: CHLORIDE 106 mEq/L (98-107)
[2020-02-10] MEDS: CALCITRIOL 1MCG/ML AMP IV SCH (10:44)
[2020-02-10 10:50] LABS: PHOSPHORUS 3.2 mg/dL (2.5-4.9)
[2020-02-10] MEDS: AMPICILLIN SOD/SULBACTAM NA 3 G in SODIUM CHLORIDE 0.9% 100 ML IV SCH ×2 (13:29→20:32)
[2020-02-11] VITALS (12 sets, daily range): BP systolic 97–130; BP diastolic 63–83
[2020-02-11] MEDS: IPRATROPIUM BROMIDE (0.02%) 0.5MG/2.5ML NEB HHN SCH ×6 (00:04→20:31)
[2020-02-11] MEDS: ACETYLCYSTEINE 100MG/ML 10% VIAL 4ML INH SCH ×3 (00:04→17:35)
[2020-02-11] MEDS: AMPICILLIN SOD/SULBACTAM NA 3 G in SODIUM CHLORIDE 0.9% 100 ML IV SCH ×2 (08:51→21:41)
[2020-02-11] MEDS: PANTOPRAZOLE SODIUM 40 MG/VIAL IV SCH ×2 (08:51→21:41)
[2020-02-11] MEDS: POTASSIUM CHLORIDE 20MEQ/PACKET PO SCH (08:51)
[2020-02-11] MEDS: ASCORBIC ACID 500 MG TABLET PO SCH ×2 (08:52→21:40)
[2020-02-11] MEDS: HYDROCORTISONE SOD SUCCINATE 100 MG/2 ML VIAL IV SCH (08:52)
[2020-02-11] MEDS: SODIUM HYPOCHLORITE (0.25%) 480ML SOLUTION (HALF STRENGTH) TOP SCH ×3 (08:53→18:15)
[2020-02-11] MEDS: AMIODARONE HCL 200 MG TABLET PO SCH ×2 (08:53→21:40)
[2020-02-11] MEDS: ZINC SULFATE 220 MG ( 50 ) CAPSULE PO SCH (08:53)
[2020-02-11] MEDS: ASPIRIN 81MG TABLET GT SCH (08:53)
[2020-02-11] MEDS: CALCITRIOL 1MCG/ML AMP IV SCH (08:54)
[2020-02-11 09:44] LABS: BASOPHILS % 0.9 % (0.0-2.0); EOSINOPHILS % 0.7 % (0.0-5.0); HEMATOCRIT. 22.2 % (42.0-52.0); HEMOGLOBIN. 7.5 g/dL (14.0-18.0); LYMPHOCYTES % 14.5 % (20.0-50.0); MEAN CORPUSCULAR HEMOGLOBIN 29.2 pg (28.0-32.0); MEAN CORPUSCULAR VOLUME 86.7 fL (80.0-94.0); MEAN PLATELET VOLUME 8.8 fl (7.4-10.4); MONOCYTES % 10.1 % (2.0-8.0); NEUTROPHILS % 73.8 % (40.0-76.0); PLATELET 156 x1000/uL (130-400); RED BLOOD CELL COUNT 2.56 mill/uL (4.7-6.1); RED CELL DISTRIBUTION WIDTH 16.6 % (11.6-14.6)
[2020-02-11 09:50] LABS: CHLORIDE 108 mEq/L (98-107)
[2020-02-11 09:57] LABS: PHOSPHORUS 3.2 mg/dL (2.5-4.9)
[2020-02-12] VITALS (10 sets, daily range): BP systolic 99–126; BP diastolic 64–102
[2020-02-12] MEDS: IPRATROPIUM BROMIDE (0.02%) 0.5MG/2.5ML NEB HHN SCH ×5 (00:44→21:48)
[2020-02-12] MEDS: ACETYLCYSTEINE 100MG/ML 10% VIAL 4ML INH SCH ×3 (00:45→16:32)
[2020-02-12 06:12] LABS: BASOPHILS % 0.8 % (0.0-2.0); EOSINOPHILS % 0.7 % (0.0-5.0); HEMATOCRIT. 22.2 % (42.0-52.0); HEMOGLOBIN. 7.8 g/dL (14.0-18.0); LYMPHOCYTES % 11.7 % (20.0-50.0); MEAN CORPUSCULAR HEMOGLOBIN 30.8 pg (28.0-32.0); MEAN CORPUSCULAR VOLUME 87.1 fL (80.0-94.0); MONOCYTES % 7.9 % (2.0-8.0); NEUTROPHILS % 78.9 % (40.0-76.0); PLATELET 159 x1000/uL (130-400); RED BLOOD CELL COUNT 2.55 mill/uL (4.7-6.1); RED CELL DISTRIBUTION WIDTH 16.4 % (11.6-14.6)
[2020-02-12 06:58] LABS: CHLORIDE 109 mEq/L (98-107)
[2020-02-12 07:09] LABS: PHOSPHORUS 3.4 mg/dL (2.5-4.9)
[2020-02-12] MEDS: AMPICILLIN SOD/SULBACTAM NA 3 G in SODIUM CHLORIDE 0.9% 100 ML IV SCH ×2 (08:07→20:35)
[2020-02-12] MEDS: CALCITRIOL 1MCG/ML AMP IV SCH (08:08)
[2020-02-12] MEDS: PANTOPRAZOLE SODIUM 40 MG/VIAL IV SCH ×2 (08:09→20:35)
[2020-02-12] MEDS: HYDROCORTISONE SOD SUCCINATE 100 MG/2 ML VIAL IV SCH (08:09)
[2020-02-12] MEDS: ASPIRIN 81MG TABLET GT SCH (08:10)
[2020-02-12] MEDS: AMIODARONE HCL 200 MG TABLET PO SCH (08:10)
[2020-02-12] MEDS: POTASSIUM CHLORIDE 20MEQ/PACKET PO SCH (08:10)
[2020-02-12] MEDS: ASCORBIC ACID 500 MG TABLET PO SCH ×2 (08:10→20:35)
[2020-02-12] MEDS: ZINC SULFATE 220 MG ( 50 ) CAPSULE PO SCH (08:13)
[2020-02-12] MEDS: SODIUM HYPOCHLORITE (0.25%) 480ML SOLUTION (HALF STRENGTH) TOP SCH ×3 (09:00→17:00)
[2020-02-12] MEDS ORDERED: LIDOCAINE HCL 1% 20ML VIAL (Pyxis) INJ ONE (14:40)
[2020-02-12] MEDS: MAGNESIUM OXIDE 400MG TABLET PO SCH (16:28)
[2020-02-12] MEDS ORDERED: MAGNESIUM 4 G PREMIX 100 ML IV SCH (17:00)
[2020-02-12] MEDS: AMIODARONE HCL 200 MG TABLET GT SCH (20:35)
[2020-02-13] VITALS (9 sets, daily range): BP systolic 118–154; BP diastolic 64–94
[2020-02-13] MEDS: IPRATROPIUM BROMIDE (0.02%) 0.5MG/2.5ML NEB HHN SCH ×6 (01:11→21:25)
[2020-02-13] MEDS: ACETYLCYSTEINE 100MG/ML 10% VIAL 4ML INH SCH ×2 (01:11→08:52)
[2020-02-13 07:35] LABS: BASOPHILS % 0.5 % (0.0-2.0); EOSINOPHILS % 0.9 % (0.0-5.0); HEMATOCRIT. 21.9 % (42.0-52.0); HEMOGLOBIN. 7.4 g/dL (14.0-18.0); LYMPHOCYTES % 8.9 % (20.0-50.0); MEAN CORPUSCULAR HEMOGLOBIN 29.3 pg (28.0-32.0); MEAN CORPUSCULAR VOLUME 87.3 fL (80.0-94.0); MEAN PLATELET VOLUME 8.3 fl (7.4-10.4); MONOCYTES % 5.3 % (2.0-8.0); NEUTROPHILS % 84.4 % (40.0-76.0); PLATELET 167 x1000/uL (130-400); RED BLOOD CELL COUNT 2.51 mill/uL (4.7-6.1); RED CELL DISTRIBUTION WIDTH 16.6 % (11.6-14.6)
[2020-02-13 07:45] LABS: CHLORIDE 109 mEq/L (98-107)
[2020-02-13 07:52] LABS: PHOSPHORUS 3.5 mg/dL (2.5-4.9)
[2020-02-13] MEDS: HYDROCORTISONE SOD SUCCINATE 100 MG/2 ML VIAL IV SCH (08:28)
[2020-02-13] MEDS: CALCITRIOL 1MCG/ML AMP IV SCH (08:28)
[2020-02-13] MEDS: PANTOPRAZOLE SODIUM 40 MG/VIAL IV SCH ×2 (08:29→23:13)
[2020-02-13] MEDS: MAGNESIUM OXIDE 400MG TABLET PO SCH (08:29)
[2020-02-13] MEDS: ASCORBIC ACID 500 MG TABLET PO SCH ×2 (08:29→23:13)
[2020-02-13] MEDS: ASPIRIN 81MG TABLET GT SCH (08:29)
[2020-02-13] MEDS: POTASSIUM CHLORIDE 20MEQ/PACKET PO SCH (08:29)
[2020-02-13] MEDS: ZINC SULFATE 220 MG ( 50 ) CAPSULE PO SCH (08:33)
[2020-02-13] MEDS: SODIUM HYPOCHLORITE (0.25%) 480ML SOLUTION (HALF STRENGTH) TOP SCH ×3 (08:33→16:46)
[2020-02-13] MEDS: AMIODARONE HCL 200 MG TABLET GT SCH ×2 (08:34→23:13)
[2020-02-13] MEDS ORDERED: MAGNESIUM 4 G PREMIX 100 ML IV ONE ×2 (12:00→18:00)
[2020-02-14] VITALS (12 sets, daily range): BP systolic 118–154; BP diastolic 62–84
[2020-02-14] MEDS: IPRATROPIUM BROMIDE (0.02%) 0.5MG/2.5ML NEB HHN SCH ×3 (01:48→16:10)
[2020-02-14 07:09] LABS: CHLORIDE 107 mEq/L (98-107)
[2020-02-14 07:15] LABS: BASOPHILS % 0.6 % (0.0-2.0); HEMATOCRIT. 23.2 % (42.0-52.0); HEMOGLOBIN. 7.8 g/dL (14.0-18.0); LYMPHOCYTES % 12.9 % (20.0-50.0); MEAN CORPUSCULAR HEMOGLOBIN 29.1 pg (28.0-32.0); MEAN CORPUSCULAR VOLUME 86.2 fL (80.0-94.0); MEAN PLATELET VOLUME 8.6 fl (7.4-10.4); MONOCYTES % 7.7 % (2.0-8.0); NEUTROPHILS % 77.8 % (40.0-76.0); PLATELET 161 x1000/uL (130-400); RED BLOOD CELL COUNT 2.69 mill/uL (4.7-6.1); RED CELL DISTRIBUTION WIDTH 16.3 % (11.6-14.6)
[2020-02-14 07:21] LABS: PHOSPHORUS 3.7 mg/dL (2.5-4.9)
[2020-02-14] MEDS: CALCITRIOL 1MCG/ML AMP IV SCH (09:31)
[2020-02-14] MEDS: PANTOPRAZOLE SODIUM 40 MG/VIAL IV SCH ×2 (09:31→20:43)
[2020-02-14] MEDS: MAGNESIUM OXIDE 400MG TABLET PO SCH (09:31)
[2020-02-14] MEDS: HYDROCORTISONE SOD SUCCINATE 100 MG/2 ML VIAL IV SCH (09:31)
[2020-02-14] MEDS: ZINC SULFATE 220 MG ( 50 ) CAPSULE PO SCH (09:31)
[2020-02-14] MEDS: ASCORBIC ACID 500 MG TABLET PO SCH ×2 (09:31→20:43)
[2020-02-14] MEDS: AMIODARONE HCL 200 MG TABLET GT SCH ×2 (09:31→20:43)
[2020-02-14] MEDS: POTASSIUM CHLORIDE 20MEQ/PACKET PO SCH (09:32)
[2020-02-14] MEDS: ASPIRIN 81MG TABLET GT SCH (09:34)
[2020-02-14] MEDS: SODIUM HYPOCHLORITE (0.25%) 480ML SOLUTION (HALF STRENGTH) TOP SCH ×3 (09:35→17:27)
[2020-02-14] MEDS: IPRATROPIUM/ALBUTEROL 0.5-3(2.5)MG/3ML NEB HHN PRN (20:25)
[2020-02-15] VITALS (12 sets, daily range): BP systolic 100–142; BP diastolic 69–83
[2020-02-15] MEDS: IPRATROPIUM BROMIDE (0.02%) 0.5MG/2.5ML NEB HHN SCH ×6 (03:55→20:33)
[2020-02-15] MEDS: PANTOPRAZOLE SODIUM 40 MG/VIAL IV SCH ×2 (08:47→20:35)
[2020-02-15] MEDS: CALCITRIOL 1MCG/ML AMP IV SCH (08:48)
[2020-02-15] MEDS: ZINC SULFATE 220 MG ( 50 ) CAPSULE PO SCH (08:49)
[2020-02-15] MEDS: HYDROCORTISONE SOD SUCCINATE 100 MG/2 ML VIAL IV SCH (08:49)
[2020-02-15] MEDS: ASPIRIN 81MG TABLET GT SCH (08:49)
[2020-02-15] MEDS: MAGNESIUM OXIDE 400MG TABLET PO SCH (08:49)
[2020-02-15] MEDS: AMIODARONE HCL 200 MG TABLET GT SCH ×2 (08:49→20:18)
[2020-02-15] MEDS: POTASSIUM CHLORIDE 20MEQ/PACKET PO SCH (08:49)
[2020-02-15] MEDS: ASCORBIC ACID 500 MG TABLET PO SCH ×2 (08:49→20:35)
[2020-02-15] MEDS: SODIUM HYPOCHLORITE (0.25%) 480ML SOLUTION (HALF STRENGTH) TOP SCH ×3 (08:50→17:19)
[2020-02-15] MEDS: IPRATROPIUM/ALBUTEROL 0.5-3(2.5)MG/3ML NEB HHN PRN (13:10)
[2020-02-16] VITALS (19 sets, daily range): BP systolic 108–144; BP diastolic 55–95
[2020-02-16] MEDS: IPRATROPIUM BROMIDE (0.02%) 0.5MG/2.5ML NEB HHN SCH ×5 (00:35→16:52)
[2020-02-16 06:59] LABS: BASOPHILS % 0.5 % (0.0-2.0); EOSINOPHILS % 1.1 % (0.0-5.0); HEMATOCRIT. 21.1 % (42.0-52.0); LYMPHOCYTES % 16.5 % (20.0-50.0); MEAN CORPUSCULAR HEMOGLOBIN 28.5 pg (28.0-32.0); MEAN CORPUSCULAR VOLUME 85.2 fL (80.0-94.0); MEAN PLATELET VOLUME 8.4 fl (7.4-10.4); MONOCYTES % 7.3 % (2.0-8.0); NEUTROPHILS % 74.6 % (40.0-76.0); PLATELET 177 x1000/uL (130-400); RED BLOOD CELL COUNT 2.47 mill/uL (4.7-6.1); RED CELL DISTRIBUTION WIDTH 16.2 % (11.6-14.6)
[2020-02-16 07:19] LABS: CHLORIDE 106 mEq/L (98-107)
[2020-02-16 07:25] LABS: PHOSPHORUS 3.2 mg/dL (2.5-4.9)
[2020-02-16] MEDS: HYDROCORTISONE SOD SUCCINATE 100 MG/2 ML VIAL IV SCH (08:27)
[2020-02-16] MEDS: ASPIRIN 81MG TABLET GT SCH (08:27)
[2020-02-16] MEDS: AMIODARONE HCL 200 MG TABLET GT SCH ×2 (08:27→20:43)
[2020-02-16] MEDS: PANTOPRAZOLE SODIUM 40 MG/VIAL IV SCH ×2 (08:27→20:43)
[2020-02-16] MEDS: MAGNESIUM OXIDE 400MG TABLET PO SCH (08:27)
[2020-02-16] MEDS: POTASSIUM CHLORIDE 20MEQ/PACKET PO SCH (08:27)
[2020-02-16] MEDS: ZINC SULFATE 220 MG ( 50 ) CAPSULE PO SCH (08:28)
[2020-02-16] MEDS: CALCITRIOL 1MCG/ML AMP IV SCH (08:28)
[2020-02-16] MEDS: ASCORBIC ACID 500 MG TABLET PO SCH ×2 (08:29→20:44)
[2020-02-16] MEDS: SODIUM HYPOCHLORITE (0.25%) 480ML SOLUTION (HALF STRENGTH) TOP SCH ×3 (08:29→17:50)
[2020-02-16] MEDS: SUCRALFATE 1 G/10 ML UDC PO SCH ×2 (17:49→20:43)
[2020-02-17] VITALS (11 sets, daily range): BP systolic 104–141; BP diastolic 61–97
[2020-02-17] MEDS: IPRATROPIUM BROMIDE (0.02%) 0.5MG/2.5ML NEB HHN SCH ×2 (00:20→20:46)
[2020-02-17] MEDS: HYDROCORTISONE SOD SUCCINATE 100 MG/2 ML VIAL IV SCH (08:45)
[2020-02-17] MEDS: ASCORBIC ACID 500 MG TABLET PO SCH ×2 (08:47→20:15)
[2020-02-17] MEDS: POTASSIUM CHLORIDE 20MEQ/PACKET PO SCH (08:47)
[2020-02-17] MEDS: SUCRALFATE 1 G/10 ML UDC PO SCH ×4 (08:47→20:14)
[2020-02-17] MEDS: ZINC SULFATE 220 MG ( 50 ) CAPSULE PO SCH (08:47)
[2020-02-17] MEDS: PANTOPRAZOLE SODIUM 40 MG/VIAL IV SCH ×2 (08:47→20:14)
[2020-02-17] MEDS: MAGNESIUM OXIDE 400MG TABLET PO SCH (08:47)
[2020-02-17] MEDS: CALCITRIOL 1MCG/ML AMP IV SCH (08:47)
[2020-02-17] MEDS: SODIUM HYPOCHLORITE (0.25%) 480ML SOLUTION (HALF STRENGTH) TOP SCH ×3 (08:48→17:47)
[2020-02-17] MEDS: AMIODARONE HCL 200 MG TABLET GT SCH ×2 (10:35→20:14)
[2020-02-17 11:09] LABS: HEMATOCRIT 24.2 % (42.0-52.0); HEMOGLOBIN 8.2 g/dL (14.0-18.0); MEAN CORPUSCULAR HEMOGLOBIN 28.7 pg (28.0-32.0); MEAN CORPUSCULAR VOLUME 84.9 fL (80.0-94.0); PLATELET 198 x1000/uL (130-400); RED BLOOD CELL COUNT 2.85 mill/uL (4.7-6.1)
[2020-02-18] VITALS (12 sets, daily range): BP systolic 118–149; BP diastolic 57–91
[2020-02-18] MEDS: IPRATROPIUM BROMIDE (0.02%) 0.5MG/2.5ML NEB HHN SCH ×6 (00:22→20:32)
[2020-02-18] MEDS: SUCRALFATE 1 G/10 ML UDC PO SCH ×4 (06:55→20:17)
[2020-02-18] MEDS: PANTOPRAZOLE SODIUM 40 MG/VIAL IV SCH ×2 (08:11→20:17)
[2020-02-18] MEDS: HYDROCORTISONE SOD SUCCINATE 100 MG/2 ML VIAL IV SCH (08:12)
[2020-02-18] MEDS: POTASSIUM CHLORIDE 20MEQ/PACKET PO SCH (08:12)
[2020-02-18] MEDS: AMIODARONE HCL 200 MG TABLET GT SCH ×2 (08:13→20:17)
[2020-02-18] MEDS: ZINC SULFATE 220 MG ( 50 ) CAPSULE PO SCH (08:13)
[2020-02-18] MEDS: CALCITRIOL 1MCG/ML AMP IV SCH (08:14)
[2020-02-18] MEDS: SODIUM HYPOCHLORITE (0.25%) 480ML SOLUTION (HALF STRENGTH) TOP SCH ×3 (09:00→18:32)
[2020-02-18] MEDS: ASCORBIC ACID 500 MG TABLET PO SCH ×2 (09:00→20:17)
[2020-02-18] MEDS: MAGNESIUM OXIDE 400MG TABLET PO SCH (09:00)
[2020-02-19] VITALS (13 sets, daily range): BP systolic 109–159; BP diastolic 62–94
[2020-02-19] MEDS: IPRATROPIUM BROMIDE (0.02%) 0.5MG/2.5ML NEB HHN SCH ×5 (00:28→15:50)
[2020-02-19] MEDS: HYDROCORTISONE SOD SUCCINATE 100 MG/2 ML VIAL IV SCH (08:24)
[2020-02-19] MEDS: MAGNESIUM OXIDE 400MG TABLET PO SCH (08:24)
[2020-02-19] MEDS: POTASSIUM CHLORIDE 20MEQ/PACKET PO SCH (08:24)
[2020-02-19] MEDS: AMIODARONE HCL 200 MG TABLET GT SCH ×2 (08:25→21:34)
[2020-02-19] MEDS: ZINC SULFATE 220 MG ( 50 ) CAPSULE PO SCH (08:25)
[2020-02-19] MEDS: PANTOPRAZOLE SODIUM 40 MG/VIAL IV SCH ×2 (08:25→21:27)
[2020-02-19] MEDS: SODIUM HYPOCHLORITE (0.25%) 480ML SOLUTION (HALF STRENGTH) TOP SCH ×2 (08:25→13:16)
[2020-02-19] MEDS: SUCRALFATE 1 G/10 ML UDC PO SCH ×4 (08:25→21:27)
[2020-02-19] MEDS: CALCITRIOL 1MCG/ML AMP IV SCH (08:25)
[2020-02-19] MEDS ORDERED: IPRATROPIUM/ALBUTEROL 0.5-3(2.5)MG/3ML NEB HHN PRN (16:15)
[2020-02-19] MEDS: IPRATROPIUM/ALBUTEROL 0.5-3(2.5)MG/3ML NEB HHN SCH (19:49)
[2020-02-20] VITALS (15 sets, daily range): BP systolic 108–142; BP diastolic 58–98
[2020-02-20] MEDS: IPRATROPIUM/ALBUTEROL 0.5-3(2.5)MG/3ML NEB HHN SCH ×4 (01:42→20:10)
[2020-02-20 06:35] LABS: BASOPHILS % 0.6 % (0.0-2.0); EOSINOPHILS % 0.5 % (0.0-5.0); HEMATOCRIT. 23.6 % (42.0-52.0); LYMPHOCYTES % 18.7 % (20.0-50.0); MEAN CORPUSCULAR HEMOGLOBIN 28.6 pg (28.0-32.0); MEAN CORPUSCULAR VOLUME 84.8 fL (80.0-94.0); MEAN PLATELET VOLUME 7.9 fl (7.4-10.4); MONOCYTES % 9.4 % (2.0-8.0); NEUTROPHILS % 70.8 % (40.0-76.0); PLATELET 227 x1000/uL (130-400); RED BLOOD CELL COUNT 2.78 mill/uL (4.7-6.1); RED CELL DISTRIBUTION WIDTH 16.4 % (11.6-14.6)
[2020-02-20 07:13] LABS: CHLORIDE 100 mEq/L (98-107)
[2020-02-20] MEDS: SUCRALFATE 1 G/10 ML UDC PO SCH ×4 (07:57→21:18)
[2020-02-20] MEDS: POTASSIUM CHLORIDE 20MEQ/PACKET PO SCH (08:23)
[2020-02-20] MEDS: CALCITRIOL 1MCG/ML AMP IV SCH (08:23)
[2020-02-20] MEDS: MAGNESIUM OXIDE 400MG TABLET PO SCH (08:23)
[2020-02-20] MEDS: PANTOPRAZOLE SODIUM 40 MG/VIAL IV SCH ×2 (08:23→21:18)
[2020-02-20] MEDS: AMIODARONE HCL 200 MG TABLET GT SCH ×2 (08:23→21:17)
[2020-02-21] VITALS (14 sets, daily range): BP systolic 94–161; BP diastolic 53–95
[2020-02-21] MEDS: IPRATROPIUM/ALBUTEROL 0.5-3(2.5)MG/3ML NEB HHN SCH ×4 (02:24→19:52)
[2020-02-21] MEDS: SUCRALFATE 1 G/10 ML UDC PO SCH ×4 (06:28→21:03)
[2020-02-21] MEDS: POTASSIUM CHLORIDE 20MEQ/PACKET PO SCH (08:57)
[2020-02-21] MEDS: AMIODARONE HCL 200 MG TABLET GT SCH ×2 (08:57→21:02)
[2020-02-21] MEDS: MAGNESIUM OXIDE 400MG TABLET PO SCH (08:57)
[2020-02-21] MEDS: PANTOPRAZOLE SODIUM 40 MG/VIAL IV SCH ×2 (08:57→21:01)
[2020-02-21] MEDS: CALCITRIOL 1MCG/ML AMP IV SCH (08:58)
[2020-02-21] MEDS ORDERED: POTASSIUM CHLORIDE 20MEQ TABLET SR PO NR (09:45)
[2020-02-21] MEDS ORDERED: POTASSIUM CHLORIDE INJ 40 MEQ in DEXT 5% WATER 250 ML IV ONE (11:00)
[2020-02-22] VITALS (14 sets, daily range): BP systolic 103–153; BP diastolic 65–91
[2020-02-22] MEDS: IPRATROPIUM/ALBUTEROL 0.5-3(2.5)MG/3ML NEB HHN SCH ×4 (01:59→14:38)
[2020-02-22] MEDS: SUCRALFATE 1 G/10 ML UDC PO SCH ×4 (06:07→20:54)
[2020-02-22] MEDS: AMIODARONE HCL 200 MG TABLET GT SCH ×2 (10:04→20:54)
[2020-02-22] MEDS: MAGNESIUM OXIDE 400MG TABLET PO SCH (10:04)
[2020-02-22] MEDS: CALCITRIOL 1MCG/ML AMP IV SCH (10:04)
[2020-02-22] MEDS: PANTOPRAZOLE SODIUM 40 MG/VIAL IV SCH ×2 (10:05→20:54)
[2020-02-22] MEDS: POTASSIUM CHLORIDE 20MEQ/PACKET PO SCH (10:05)
== END 2020-02-22 22:45 | DRG 4 ==
LOC: ER 12:26 → EDBEDREQSVC 13:45 → SUPCPDRO 17:00 → MICUSO 17:03 → EDBEDREQ 17:05 → 5EST 01-23 15:39 → CVICU 02-03 00:15 → 5EST 02-09 16:46
PROVIDERS: ADMIT Internal Medicine; ATTEND Internal Medicine
PROC: 0DH60UZ Insertion of Feeding Device into Stomach, Open Approach (ICD-10-PCS; 2020-02-01)
PROC: 30233N1 Transfusion of Nonautologous Red Blood Cells into Peripheral Vein, Percutaneous Approach (ICD-10-PCS; 2020-02-01)
PROC: 5A1955Z Respiratory Ventilation, Greater than 96 Consecutive Hours (ICD-10-PCS; principal; 2020-02-05)
PROC: 0B113F4 Bypass Trachea to Cutaneous with Tracheostomy Device, Percutaneous Approach (ICD-10-PCS; 2020-02-05)
PROC: 0BH18EZ Insertion of Endotracheal Airway into Trachea, Via Natural or Artificial Opening Endoscopic (ICD-10-PCS; 2020-02-05)
PROC: 5A2204Z Restoration of Cardiac Rhythm, Single (ICD-10-PCS; 2020-02-05)
PROC: 0GBJ0ZZ Excision of Thyroid Gland Isthmus, Open Approach (ICD-10-PCS; 2020-02-05)
PROC: B246ZZ4 Ultrasonography of Right and Left Heart, Transesophageal (ICD-10-PCS; 2020-02-05)
PROC: 02HV33Z Insertion of Infusion Device into Superior Vena Cava, Percutaneous Approach (ICD-10-PCS; 2020-02-12)
DX: A41.50 Gram-negative sepsis, unspecified (principal); I21.A1 Myocardial infarction type 2; N17.0 Acute kidney failure with tubular necrosis; J96.01 Acute respiratory failure with hypoxia; J69.0 Pneumonitis due to inhalation of food and vomit; G92 Toxic encephalopathy; E43 Unspecified severe protein-calorie malnutrition; R65.21 Severe sepsis with septic shock; J44.0 Chronic obstructive pulmonary disease with (acute) lower respiratory infection; N18.3 Chronic kidney disease, stage 3 (moderate); N39.0 Urinary tract infection, site not specified; I27.20 Pulmonary hypertension, unspecified; B18.2 Chronic viral hepatitis C; B95.2 Enterococcus as the cause of diseases classified elsewhere; C19 Malignant neoplasm of rectosigmoid junction; D63.8 Anemia in other chronic diseases classified elsewhere; D68.69 Other thrombophilia; E78.00 Pure hypercholesterolemia, unspecified; E78.5 Hyperlipidemia, unspecified; E86.9 Volume depletion, unspecified; E87.0 Hyperosmolality and hypernatremia; E87.1 Hypo-osmolality and hyponatremia; E87.2 Acidosis; E87.5 Hyperkalemia; E87.6 Hypokalemia; G40.909 Epilepsy, unspecified, not intractable, without status epilepticus; I12.0 Hypertensive chronic kidney disease with stage 5 chronic kidney disease or end stage renal disease; I25.10 Atherosclerotic heart disease of native coronary artery without angina pectoris; I27.29 Other secondary pulmonary hypertension; I27.81 Cor pulmonale (chronic); I47.1 Supraventricular tachycardia; I48.0 Paroxysmal atrial fibrillation; I49.3 Ventricular premature depolarization; I63.9 Cerebral infarction, unspecified; K25.9 Gastric ulcer, unspecified as acute or chronic, without hemorrhage or perforation; K29.70 Gastritis, unspecified, without bleeding; K40.90 Unilateral inguinal hernia, without obstruction or gangrene, not specified as recurrent; K80.20 Calculus of gallbladder without cholecystitis without obstruction; L84 Corns and callosities; N18.6 End stage renal disease; N48.89 Other specified disorders of penis; L89.310 Pressure ulcer of right buttock, unstageable; N49.2 Inflammatory disorders of scrotum; K25.4 Chronic or unspecified gastric ulcer with hemorrhage; Z20.828 Contact with and (suspected) exposure to other viral communicable diseases; Z72.0 Tobacco use; Z82.49 Family history of ischemic heart disease and other diseases of the circulatory system; Z85.048 Personal history of other malignant neoplasm of rectum, rectosigmoid junction, and anus; I25.2 Old myocardial infarction; Z86.73 Personal history of transient ischemic attack (TIA), and cerebral infarction without residual deficits; Z87.11 Personal history of peptic ulcer disease; Z93.1 Gastrostomy status; Z99.11 Dependence on respirator [ventilator] status; Z79.82 Long term (current) use of aspirin; Z79.899 Other long term (current) drug therapy
CPT/HCPCS: 36415; 36600; 71045; 71250; 74018; 74176; 76700; 76870; 76937; 80048; 80053; 80061; 80076; 80202; 81003; 82040; 82270; 82330; 82375; 82607; 82746; 82805; 83036; 83540; 83550; 83605; 83735; 83880; 84100; 84132; 84134; 84145; 84439; 84443; 84478; 84484; 85014; 85018; 85025; 85027; 86705; 86709; 86803; 86850; 86900; 86920; 87070; 87075; 87077; 87106; 87186; 87340; 87635; 93005; 93306; 93970; 93976; 94003; 94640; 99291; C1725; C1752; C1887; C9113; J0153; J0282; J0295; J0610; J0636; J0696; J1100; J1160; J1644; J1650; J1720; J1940; J1956; J2185; J2250; J2370; J2405; J2543; J3010; J3370; J3475; J3480; J3490; J7030; J7050; J7060; J7070; J7608; P9016; P9047; U0003-CS